=== PATIENT | male | born 1955 | race Caucasian/White ===

== ENCOUNTER → 2017-06-10 08:07 | Outpatient (CLI) | payer OTHER, SELFPAY ==
--- NOTE | 2017-06-10 08:32 | EKG12_ITS ---
Test Reason : PRE-OP Blood Pressure : / mmHG Vent. Rate : 064 BPM Atrial Rate : 064 BPM P-R Int : 128 ms QRS Dur : 100 ms QT Int : 382 ms P-R-T Axes : 066 081 062 degrees QTc Int : 394 ms Normal sinus rhythm Possible Left atrial enlargement Borderline ECG Confirmed by NAV TAFOYA, PHIL ([id number]), design editor ROSE GUERRA ([id number]) on 06/11/2017 8:59:20 AM Referred By: OUT DOCTOR Confirmed By:PHIL CHOPRA MD
[2017-06-10 10:04] LABS: Hematocrit 45.7 % (40-54); Hemoglobin 15.4 g/dl (13.0-16.5); Mean Corp Hgb Conc 33.7 g/gl (32-36); Mean Corpuscular Hgb 31.3 pg (27.0-32.0); Mean Corpuscular Volume 92.9 fL (80-94); Mean Platelet Vol. 9.4 fl (6.2-12.0); Platelet Count 248 K/mm3 (150-450); RBC Distribution Width CV 13.1 % (11.6-14.6); RBC Distribution Width SD 43.1 fl (35.1-43.9); Red Blood Count 4.92 M/mm3 (4.6-6.2); White Blood Count 7.8 K/mm3 (4.4-11.0)
[2017-06-10 10:28] LABS: Scan Indicated on CBC? Y/N NO
== END ==
PROVIDERS: Family Provider Family Medicine; PCP Family Medicine
DX: S62.626A Displaced fracture of middle phalanx of right little finger, initial encounter for closed fracture (principal); X58.XXXA Exposure to other specified factors, initial encounter
CPT/HCPCS: 36415; 85027; 93005

== ENCOUNTER → 2017-07-17 12:29 | Outpatient (CLI) | payer OTHER, SELFPAY ==
[2017-07-17 13:35] LABS: Hematocrit 42.4 % (40-54); Hemoglobin 14.4 g/dl (13.0-16.5); Mean Corpuscular Hgb 31.2 pg (27.0-32.0); Platelet Count 244 K/mm3 (150-450); RBC Distribution Width CV 12.8 % (11.6-14.6); RBC Distribution Width SD 42.4 fl (35.1-43.9); Red Blood Count 4.61 M/mm3 (4.6-6.2); White Blood Count 7.5 K/mm3 (4.4-11.0)
[2017-07-17 13:36] LABS: Scan Indicated on CBC? Y/N NO
== END ==
PROVIDERS: Family Provider Family Medicine; PCP Family Medicine
DX: S62.626A Displaced fracture of middle phalanx of right little finger, initial encounter for closed fracture (principal); X58.XXXA Exposure to other specified factors, initial encounter
CPT/HCPCS: 36415; 85027

== ENCOUNTER 2019-11-02 17:40 | Observation (INO) | payer OTHER, MEDICARE, SELFPAY ==
[2019-11-02] VITALS (8 sets, daily range): BP systolic 125–188; BP diastolic 69–112; PULSE 61–77; RESP 15–18; TEMP 36.4–37; O2SAT 5–98; BMI 22.7; BMI 23.8; BMI 23.9
--- NOTE | 2019-11-02 17:56 | EKG12_ITS ---
Test Reason : PRE OP Blood Pressure : / mmHG Vent. Rate : 058 BPM Atrial Rate : 058 BPM P-R Int : 124 ms QRS Dur : 108 ms QT Int : 414 ms P-R-T Axes : 063 081 068 degrees QTc Int : 406 ms Sinus bradycardia Otherwise normal ECG Confirmed by NAV TAFOYA, PHIL ([id number]), development editor DEVORAH TRAMMELL ([id number]) on 11/04/2019 9:44:38 AM Referred By: IVAN Confirmed By:PHIL CHOPRA MD
--- NOTE | 2019-11-02 18:00 | ED.DCSUM_ITS ---
- ER Visit Summary Date of Service: 11/02/19 Chief Complaint: [Abdominal pain] History of Present Illness: The patient is a 64 M [presents the emergency department complaint of abdominal pain that started around 11:30 AM. Patient states initially he does not notice some soreness to the suprapubic region and then noticed the mass. The mass is progressively becoming more painful. Patient's now got nausea. Denies vomiting. Denies fever. He denies any blood in stool or black tarry stool. He denies lifting anything heavy other than his granddaughter who weighs about 20 pounds. Patient has no medical history otherwise. He has had no prior surgical history.] Physical Examination: [HEENT-PERRLA, EOMI. Cranial nerves II through XII grossly intact. TMs clear. Mucous membranes moist. No adenopathy. Cardiovascular-regular rate and rhythm without murmur or ectopy Lungs-clear to auscultation, chest wall stable without crepitus or subcu emphysema Abdomen-normoactive bowel sounds, soft. Patient has tenderness palpation over the right inguinal region with a mass noted that is very tender to palpation. No significant skin changes noted. I attempted to reduce the suspected incarcerated hernia unsuccessfully. Extremities-intact ?4, normal range of motion, normal pulses, atraumatic] Test Results: [Laboratory results are pending. Patient also had a COVID 19 test ordered as I suspect that he would require surgical intervention. Patient also had an EKG ordered which is pending.] Emergency Department Course and Treatment: [After exiting the patient's room I immediately contacted general surgeon on-call Dr. Fausto Duffy who will present to the emergency department. I was asked to place patient in Trendelenburg position and apply ice to the area.] Treatment Plan: [Patient was seen by the general surgeon in the emergency department who attempted to reduce the incarcerated hernia unsuccessfully and will take patient to the operating room.] Disposition: [Admit for surgical intervention] Impression: [Incarcerated right inguinal hernia] This note was generated with [employer] dictation software. It may contain incorrect words, spelling, and punctuation that were not noted in review of the chart prior to signing ED Disposition - Plan for ED Patient: Referrals: Clifford Rodriguez MD [Primary Care Provider] -
[2019-11-02] MEDS: 0.9% Normal Saline 1,000 ML 125 ML IV (18:02)
[2019-11-02] MEDS: HYDROmorphone 1 MG/ML Syringe IV ×2 (18:03→18:36)
[2019-11-02] MEDS: Ondansetron 4 MG/2 ML Vial IV (18:03)
[2019-11-02 18:12] LABS: Absolute Neutrophil Count 8.9 X10^3/uL (2.0-7.7); Basophil# 0.09 X10^3/uL; Basophil% 0.8 % (0-1); Eosinophil# 0.15 X10^3/uL; Eosinophils% 1.4 % (0-5); Hematocrit 48.1 % (40-54); Hemoglobin 15.8 g/dL (13.0-16.5); Lymphocyte % 11.8 % (19-41); Mean Corp Hgb Conc 32.8 g/dL (32-36); Mean Corpuscular Hgb 31.5 pg (27.0-32.0); Mean Platelet Vol. 8.9 fl (6.2-12.0); Monocyte# 0.64 X10^3/uL; Monocyte% 5.8 % (0-10); NRBC Flagged by Analyzer 0 % (0-5); Neutrophil # 8.85 X10^3/uL (2.7-7.7); Neutrophil % 79.9 % (47-70); Platelet Count 264 K/mm3 (150-450); RBC Distribution Width CV 12.7 % (11.6-14.6); RBC Distribution Width SD 45.2 fl (35.1-43.9); Red Blood Count 5.01 M/mm3 (4.6-6.2); White Blood Count 11.1 K/mm3 (4.4-11.0)
--- NOTE | 2019-11-02 18:22 | NURSING ---
DR STEARNS IN ER
[2019-11-02 18:33] LABS: Anion Gap 3 (5-15); BUN 20 mg/dL (7-18); Calcium,Total 9.6 mg/dL (8.5-10.1); Chloride 109 mmol/L (98-107); Creatinine, Serum 1.11 mg/dL (0.70-1.30); EST Glomerular Filtration Rate 71 mL/min (>60); Est Glom Filt Rate - Afr Amer 86 mL/min (>60); Glucose 101 mg/dL (74-106); Potassium 4.7 mmol/L (3.5-5.1); Sodium Level 139 mmol/L (136-145)
[2019-11-02 18:53] LABS: Lactic Acid 0.8 mmol/L (0.4-1.9)
--- NOTE | 2019-11-02 19:05 | HP.PCM_ITS ---
Problem List (1) Incarcerated right inguinal hernia Status: Acute History of Present Illness Date of Admission: 11/02/19 The patient is a 64 year old M who presents with right groin pain since 1130 this morning. The patient reports that he has never experienced a hernia in this area. He started having bulging earlier today and it is increased in pain throughout the day. He is having nausea but no vomiting. He is complaining of abdominal pain as well. Past Medical History Allergies No Known Allergies Allergy (Verified 11/02/19 17:41) Home Medications: Ambulatory Orders Medication Instructions Recorded NK 11/02/19 Surgical History: no surgical history Smoking Status: Current every day smoker - *Family History Maternal History Items: No pertinent history Review of Systems Constitutional: Denies: Anorexia, Fever HEENT: Denies: Difficulty Swallowing Cardiovascular: Denies: Chest Pain Respiratory: Denies: Cough, Shortness of Breath Gastrointestinal: Reports: Abdominal Pain, Nausea, - - Right groin pain and bulging. Denies: Hematemesis, Hematochezia, Vomiting Genitourinary: Denies: Dysuria Skin: Denies: Jaundice Psychiatric: Denies: Anxiety Hematologic/ Lymphatic: Denies: Anemia VTE Information - Inpt Only VTE Present on Admission: No VTE Mechan Device Prophylaxis: SCD's Patient Problems: Active and Suspected Problems Incarcerated right inguinal hernia (Acute) - Physical Exam Vitals/I&O's: Vital Signs Temp Pulse Resp BP Pulse Ox 97.6 F L 61 18 159/69 H 95 11/02/19 18:37 11/02/19 18:37 11/02/19 18:37 11/02/19 18:37 11/02/19 18:37 Oxygen Flow Rate (L/min) 2 Oxygen Delivery Method Nasal Cannula Weight: 154 lb 1.65 oz Body Mass Index (BMI) 22.7 General: Alert, Oriented x3 Lungs: Normal air movement Cardiovascular: Regular rate, Regular Rhythm Abdomen: Soft, Non-Distended, - - Firm right groin hernia which is nonreducible Extremities: No clubbing Musculoskeletal: No Muscle Wasting Neurological: Cranial nerves II-XII grossly intact Psych/Mental Status: Normal Affect Laboratory Results 11/02/19 18:02: WBC 11.1 H, RBC 5.01, Hgb 15.8, Hct 48.1, MCV 96.0 H, MCH 31.5, MCHC 32.8, RDW Std Deviation 45.2 H, RDW Coeff of Darcy 12.7, Plt Count 264, MPV 8.9, Immature Gran % (Auto) 0.300, Neut % (Auto) 79.9 H, Lymph % (Auto) 11.8 L, [place] % (Auto) 5.8, Eos % (Auto) 1.4, Baso % (Auto) 0.8, Absolute Neuts (auto) 8.9 H, Absolute Lymphs (auto) 1.30, Nucleated RBC % 0 11/02/19 18:02: Sodium 139, Potassium 4.7, Chloride 109 H, Carbon Dioxide 27.0, Anion Gap 3 L, BUN 20 H, Creatinine 1.11, Estim Creat Clear Calc 65.60, Est GFR (MDRD) Af Amer 86, Est GFR (MDRD) Non-Af 71, BUN/Creatinine Ratio 18.0, Glucose 101, Calcium 9.6 11/02/19 18:10: Lactic Acid 0.8 11/02/19 18:30: COVID-19 (MAMADOU) Pending Current Medications Sodium Chloride () 1,000 mls @ 125 mls/hr IV .Q8H ADALGISA Last Admin: 11/02/19 18:02 Dose: 125 mls/hr Documented by: Assessment/Plan All Active Problems Incarcerated right inguinal hernia (Acute) 64-year-old male with incarcerated inguinal hernia 1. Patient has incarcerated regular hernia with possible strangulation. I was unable to reduce the hernia despite using Trendelenburg and ice packs and pain medication. The area is firm. I will take the patient to surgery this evening. I discussed surgery with the patient and his . I discussed the risks including not limited to bleeding, infection, groin pain, mesh infection, bowel resection. I discussed that I would start laparoscopically and reduce the hernia and assess the bowel. If the bowel needed resection then I would resect the small bowel and perform an inguinal hernia repair in the future. If the bowel is viable I will perform an inguinal hernia repair with mesh today. I discussed open approach and laparoscopic approach and that I would decide based on findings intraoperatively. Patient understands and is willing to proceed. Fausto Duffy MD Pager: [facility] [address] [place] [address], [address] [place] [address] Office:
[2019-11-02] MEDS: Bupivacaine Mpf 0.5% 30 ML VIAL (21:10)
--- NOTE | 2019-11-02 21:15 | PCM.OPRPT ---
Problem List (1) Incarcerated right inguinal hernia Status: Acute Report of Operation Date of Procedure: 11/02/19 Pre-Operative Diagnosis: Incarcerated right inguinal hernia Post-Operative Diagnosis: Same Surgery/Procedure Performed:: Laparoscopic right inguinal hernia repair with mesh Description of Procedure: Patient was brought to the operating room and general anesthesia was induced. The abdomen was prepped and draped in usual sterile fashion. An incision was made over the umbilicus in a curvilinear fashion and deepened to the small umbilical hernia defect. The defect was widened and the peritoneum was elevated and incised. A port was placed into the abdomen and it was insufflated to 15 mmHg. Next under direct visualization right sided and left sided abdominal 5 mm ports were placed. The patient was placed in steep Trendelenburg position. The bowel was then reduced. It appeared to be a Newsome's hernia with the antimesenteric side and the defect. It was observed for several minutes and pinked up well with peristalsis. Next the decision was taken to repair this in a laparoscopic fashion. Using electrocautery scissors the peritoneum was scored and dissection was carried inferiorly until the direct hernia defect was reduced and further posteriorly until there was a good amount of overlap and the pubic tubercle was identified. The dissection was carried laterally and the peritoneum was dissected free from the gonadal vessels. The medium 3D Bard mesh was then placed into the inguinal region and over the hernia defect. It was tacked to the pubic tubercle using pro-tack tacker. Next the mesh was arranged so that it was in good position and covered the defect well and a second pro-utilization management nurse tack was placed to oriented. Next the peritoneum was reapproximated using pro-tack tacker to avoid the epigastric vessels. There was good coverage of the mesh. The bowel was reexamined and appeared viable with good peristalsis and no further transition point. The bowel was approximately 10 cm proximal to the ileocecal valve. Next the abdomen was allowed to desufflate under observation to assure the mesh was flat and the ports were removed. The umbilical hernia defect was reapproximated using an 0 Vicryl suture in a [id number] fashion. All the incisions were anesthetized with local anesthetic and closed with interrupted 4-0 Monocryl sutures as well as Steri-Strips and bandages. The scrotum was examined at the end the case and contain both testicles. Patient was awoken and taken to PACU in stable condition and tolerated the procedure well. Grafts/Implants Used: Medium right Bard 3D mesh - Admit VTE Documentation VTE Mechan Device Prophylaxis: SCD's
[2019-11-02] MEDS: 0.9% Normal Saline 1,000 ML 60 ML IV (23:34)
[2019-11-03 00:48] VITALS: BP 137/75; PULSE 79; RESP 16; TEMP 36.9; O2SAT 96
[2019-11-03 00:53] VITALS: BMI 23.9
[2019-11-03 03:08] VITALS: BP 140/79; PULSE 62; RESP 16; TEMP 36.8; O2SAT 96
[2019-11-03 03:13] VITALS: BMI 23.9
[2019-11-03 06:16] VITALS: BP 138/84; PULSE 74; RESP 18; TEMP 36.9; O2SAT 93
[2019-11-03 06:20] VITALS: BMI 23.9
[2019-11-03 06:50] VITALS: O2SAT 93
--- NOTE | 2019-11-03 08:42 | DCINST_ITS ---
Discharge Diet: Light diet - advance as tolerated Discharge Activity: Return to Normal Activity, May Not Drive - for 2-3 days or while taking narcotic pain meds., May Shower - with the bandage in place 1-2 days after surgery. Lifting Restrictions: 20 pounds for 4 weeks. Additional Activity Instructions:: Climbing stairs is fine, walking is encouraged. Sitting in bed may be uncomfortable. Sitting up using your lateral muscles (sitting up sideways) is usually more comfortable. Do not drive, work heavy equipment of sign legal documents for 24 hours. If your hernia repair was an ingunial repair, you may have scrotal swelling, an ice pack and/or athletic support can provide more comfort. Pain medications may cause nausea, you should typically eat light foods as you take your pain medications. Pain medications may also cause constipation. If you have difficulty with this, discuss with your doctor. Call your doctor if your incision/area has: Continuous Slow Oozing, Sudden Increased Bleeding, Increased Pain/ Swelling, Increased Redness, Foul Smelling Discharge Call your doctor if you observe: Fever of 101 or Higher Suture Line Care: Avoid Pulling/Pushing, Avoid Pinching/Bending Change Dressing in (Days):: 3 - Leave steri-strips for 1 week. May protect with a guaze bandaid. Cleanse incision/area with: Keep Dressing Clean & Dry Allergies/Adverse Reactions: Allergies No Known Allergies Allergy (Verified 11/02/19 17:41) Medications to take at Discharge Acetaminophen [Tylenol Tablet] 650 mg PO Q4H PRN PRN tablet 11/03/19 Test Results: Test results from this visit will be discussed in further detail at your follow- up appointment, if applicable. Please Follow Up With: Fausto Duffy MD When: Call [phone] to schedule 2 week follow up appt
[2019-11-03 09:27] VITALS: BP 168/89; PULSE 72; RESP 18; TEMP 36.8; O2SAT 94; BMI 23.9
[2019-11-03] MEDS: Acetaminophen 325 MG Tablet 650 MG PO ×2 (09:32→13:34)
--- NOTE | 2019-11-03 09:52 | PN.SURG_ITS ---
Patient Problems: Active and Suspected Problems Incarcerated right inguinal hernia (Acute) Subjective: Patient is doing well this morning with no nausea or vomiting and minimal abdominal pain. He is tolerating clears. - Physical Exam Vitals/I&O's: Vital Signs Temp Pulse Resp BP Pulse Ox 98.3 F 72 18 168/89 H 94 11/03/19 09:27 11/03/19 09:27 11/03/19 09:27 11/03/19 09:27 11/03/19 09:27 Oxygen Flow Rate (L/min) 1 Oxygen Delivery Method Room Air Weight: 161 lb 9.581 oz Body Mass Index (BMI) 23.8 Intake and Output for Last 24 Hours 11/01/19 11/02/19 11/03/19 23:59 23:59 23:59 Intake Total 1100 / 1100 300 / 300 Output Total 400 / 400 Balance 1100 / 1100 -100 / -100 General: Alert, Oriented x3, Cooperative Lungs: Normal air movement Abdomen: Soft, Non Tender, Non-Distended Laboratory Results 11/02/19 18:02: WBC 11.1 H, RBC 5.01, Hgb 15.8, Hct 48.1, MCV 96.0 H, MCH 31.5, MCHC 32.8, RDW Std Deviation 45.2 H, RDW Coeff of Darcy 12.7, Plt Count 264, MPV 8.9, Immature Gran % (Auto) 0.300, Neut % (Auto) 79.9 H, Lymph % (Auto) 11.8 L, [place] % (Auto) 5.8, Eos % (Auto) 1.4, Baso % (Auto) 0.8, Absolute Neuts (auto) 8.9 H, Absolute Lymphs (auto) 1.30, Nucleated RBC % 0 11/02/19 18:02: Sodium 139, Potassium 4.7, Chloride 109 H, Carbon Dioxide 27.0, Anion Gap 3 L, BUN 20 H, Creatinine 1.11, Estim Creat Clear Calc 65.60, Est GFR (MDRD) Af Amer 86, Est GFR (MDRD) Non-Af 71, BUN/Creatinine Ratio 18.0, Glucose 101, Calcium 9.6 11/02/19 18:10: Lactic Acid 0.8 11/02/19 18:30: COVID-19 (MAMADOU) Negative Current Medications Acetaminophen (Tylenol) 650 mg PO Q4H PRN PRN PRN Reason: Pain (1-10) or Fever Last Admin: 11/03/19 09:32 Dose: 650 mg Documented by: Sodium Chloride () 1,000 mls @ 60 mls/hr IV .[id number] [facility] Last Admin: 11/02/19 23:34 Dose: 60 mls/hr Documented by: Ketorolac Tromethamine (Toradol (Bkc)) 15 mg IV Q8H PRN PRN PRN Reason: Pain Score 4-10/10 Stop: 11/04/19 21:14 Morphine Sulfate () 2 - 4 mg IV Q2H PRN PRN PRN Reason: Pain Score 4-10/10 Morphine Sulfate () 2 - 4 mg IV Q2H PRN PRN PRN Reason: Pain Score 4-10/10 Nutritional Formula (Lactose Free) (Ensure Enlive) 120 ml PO 4X/DAY [facility] Last Admin: 11/03/19 09:31 Dose: Not Given Documented by: Ondansetron HCl (Zofran) 4 mg IV Q6H PRN PRN PRN Reason: NAUSEA Oxycodone HCl (Oxyir) 5 - 10 mg PO Q4H PRN PRN PRN Reason: Pain Score 4-10/10 Sodium Chloride () 10 - 40 ml IV UD PRN PRN Reason: SALINE FLUSH Medical Necessity - Tobacco Use Smoking Status: Current every day smoker Tobacco Use: Cigarettes Assessment/Plan All Active Problems Incarcerated right inguinal hernia (Acute) 64-year-old male status post incarcerated right inguinal hernia repair with mesh 1. Patient is doing well this morning. I advised him that if he tolerates regular diet he may be discharged home today. I advised him to not lift over the 20 pounds for 4 weeks. Follow-up in 2 weeks. Fausto Duffy MD Pager: [facility] [address] [place] [address], [address] [place] [address] Office:
--- NOTE | 2019-11-03 11:35 | PHA.DC.MC ---
Pharmacy Service has performed discharge medication reconciliation and counseling for this patient. 1. ACETAMINOPHEN 650MG PO Q4H PRN PAIN OR FEVER The patient's discharge medication list was reviewed for discrepancies and discrepancies were resolved. Home Medications Acetaminophen [Tylenol Tablet] 650 mg PO Q4H PRN PRN tab 11/03/19 The patient was counseled on the following discharge medications and changes in medications for homegoing were reviewed. The Reason for Use, instructions for use, and potential side effects were reviewed for all new medications. The patient's questions regarding all of their medications were answered. The patient was able to verbally demonstrate an understanding of their discharge medications.
[2019-11-03 13:38] VITALS: BP 153/93; PULSE 82; RESP 18; TEMP 37.1; O2SAT 94
== END 2019-11-03 14:02 | disposition home or self-care (01) ==
LOC: ED 18:46 → MS3 19:30
PROVIDERS: Admitting Provider Surgery; Emergency Provider Emergency Medicine; PCP Family Medicine; Visit Provider Surgery
PROC: (CPT 49650; principal; 2019-11-02 19:15)
DX: K40.30 Unilateral inguinal hernia, with obstruction, without gangrene, not specified as recurrent (principal); F17.210 Nicotine dependence, cigarettes, uncomplicated
CPT/HCPCS: 00840; 49650; 80048; 83605; 85025; 87635; 93005; 96361; 96374; 96375; 96376; 99218; 99251; 99284; 99406; G2023; J7030; A4216; C1781; G0378; G0463; J2405; U0003

== ENCOUNTER 2019-11-30 07:27 | Day surgery (SDC) | payer OTHER, SELFPAY ==
[2019-11-02 22:14] VITALS: BMI 23.8
[2019-11-30] VITALS (7 sets, daily range): BP systolic 94–142; BP diastolic 71–91; PULSE 77–81; RESP 16; TEMP 36.1–36.4; O2SAT 96–98; BMI 23.8; BMI 22.4
--- NOTE | 2019-11-30 | COLBX_PTH ---
PATIENT: DANNY PEREA LOC: EN U#:[id number] AGE/SX: 64/M ROOM: RE11/30/[address]: Dr. Fausto Duffy MD : [id number] BED: DIS: 11/30/2019 SPEC #: [id number] RECD: 11/30/19 09:37 STATUS: MYRANDA REMEDIOS #: [id number] KAITLIN: 11/30/19 00:[address]: Fausto Duffy DEPT: SURGICAL PATHOLOGY RECD BY: Robby Chao ENTERED: 11/30/19 09:37 SP TYPE: COLON BX OTHR DR: Dr. Clifford Rodriguez MD Tissues: Sigmoid colon biopsy Procedures: Surgery Specimen Level IV HEADER OPERATION: Colonoscopy (MAC) PRE-OP DIAGNOSIS: Screening TISSUE SUBMITTED: Sigmoid polyp MICROSCOPIC DIAGNOSIS Sigmoid colon polyp, biopsy: Hyperplastic polyp. AM:cat 12/01/19 MICROSCOPIC DESCRIPTION Slides are reviewed. GROSS DESCRIPTION Received in fixative is one container labeled with the patient's name and designated sigmoid polyp. The specimen consists of a forbes-pink polyp measuring 0.7 x 0.5 x 0.3 cm. The specimen is totally submitted in one cassette. / SJ:cat 11/30/19 TC:5 CPT: 32505
[2019-11-30] MEDS: Lactated Ringers 1,000 ML 100 ML IV (08:02)
--- NOTE | 2019-11-30 08:57 | HP.PCM_ITS ---
History of Present Illness Date of Admission: 11/30/19 The patient is a 64 year old M here for screening colonoscopy. The patient has never had a screening colonoscopy in the past. He is having no abdominal pain or blood in his stool. He has no family history of colon cancer. Past Medical/Surgical History - Planned Operation Planned Operative Procedure/s: COLONOSCOPY Date of Operative Procedure: 11/30/19 Permit Signed: Yes S.O.S: No Is This Patient Having a Total Joint: No - Previous Hospitalizations/Surgeries HX Hospitalizations: No HX of Surgeries: LAP INCARCERATED HERNIA REPAIR W/ MESH 11/02/19 Any Problems With Anesthesia: No You/Your Family Experience Fever (Hyperthermia) With Anes: No Cholinesterase deficiency: No - Cardiovascular Hx Chest Pain within Last 2 months: No Hx of Irregular Heartbeat and/or Afib: No Hx Heart Attack: No Hx Congestive Heart Failure: No Hx Rheumatic Fever: No Hx Hypertension: No Hx Internal Defibrillator: No Hx Pacemaker: No Hx Cardiac Catheterization: No Hx Cardiac Surgery/Stents/Etc.: No Hx Stress Test: No HX Edema: No Hx Pain in Legs when Walking/Leg Cramps: No - Respiratory Chronic Cough: No HX of Shortness of Breath: No Hoarseness: No Hx Chronic Obstructive Pulmonary Disease (COPD): No Hx Asthma: No Hx Emphysema: No Hx Sleep Apnea: No Hx Oxygen Use at Home: No Hx Respiratory Tract Infection/Cold (presently): No Do You Snore Loudly (louder than talking or can be heard): No Do You Often Feel Tired/ Fatigued/ Sleepy Dring Daytime?: No Has Anyone Observed You Stop Breathing During Sleep?: No Result (for STOP score): Negative Hx Smoking: Yes Smoking Status: Current every day smoker - Gastrointestinal Hx Gastroesophageal Reflux: No Hx Gastrointestinal Disorders: No Hx Gastrointestinal Bleed: No Hx Ulcer: No Hx Hiatal Hernia: No Difficulty Chewing/Swallowing: No Recent Onset of Swallowing Problems: No Special diet followed at home: No Hx Unplanned Weight Loss of 20#: No HX Unplanned Weight Gain of 20#: No - Neurological Hx Seizures: No HX Syncope/Blackout Spells/Unconsciousness: No Hx CVA/Stroke: No Hx Transient Ischemic Attacks (TIA): No Hx Multiple Sclerosis: No Hx Parkinson's Disease: No Hx Head/Neck Injury: No Hx Headaches: No Hx Back Injury/Pain: Yes - BACK INJURY AT WORK-[employer] FX 3 PLACES, VERTEBRA FX 20+ YRS AGO Restless Legs: No Does patient have nerve stimulator: No - Blood Disorder Hx Leukemia: No Bleeding Tendencies: No Hx Deep Vein Thrombosis: No Hx High Cholesterol: No Blood Transmitted Disease: No Hx Hepatitis: No Hx Cirrhosis: No Hx Anemia: No Hx Blood Disorders: No - Genitourinary Hx Renal Disease: No Hx Dialysis: No - Musculoskeletal Hx Arthritis: No Hx Rheumatoid Arthritis: No Hx Gout: No Recent Onset of an Orthopedic Problem: No - Endocrine Hx Diabetes: No Thyroid Disease: No Hx Steroid Therapy: No - Psycho/Social Hx Substance Use: No Hx Alcohol Use: Yes - occasional beer Hx Anxiety: No Hx Depression: No Mental Illness: No Hx Dementia: No - Miscellaneous Hx Cancer: No Recent Exposure to Contagious Disease: No Active MRSA: No Hx of C-Diff: No Any Loose Teeth: Yes - UPPER PLATE Additional information pertinent to anesthesia:: SMOKES 1PPD FOR 30+ YRS Allergies No Known Allergies Allergy (Verified 11/18/19 14:14) Maternal No pertinent history - Discharge Is Pt Admitted From a Senior Living, or a Fpc: No Who Could Help: After D/C, Where Do you Plan to Go: Return Home - From the PAT History Number of Risk Factors: 1 - Physical Exam Vitals/I&O's: Vital Signs Temp Pulse Resp BP Pulse Ox 97.2 F L 81 16 94/74 98 11/30/19 08:45 11/30/19 08:50 11/30/19 08:50 11/30/19 08:50 11/30/19 08:50 Oxygen Delivery Method Room Air Weight: 152 lb 5.431 oz Body Mass Index (BMI) 22.4 General: Alert, Oriented x3 Neck: No JVD Lungs: Normal air movement Cardiovascular: Regular rate, Regular Rhythm Abdomen: Soft, Non Tender, Non-Distended Current Medications Lactated Ringer's () 1,000 mls @ 100 mls/hr IV .Q10H ADALGISA Last Admin: 11/30/19 08:02 Dose: 100 mls/hr Documented by: Assessment/Plan All Active Problems (Last Updated 11/16/19 @ 13:11 by Lana Pierce) Incarcerated right inguinal hernia (Acute) 64-year-old male for screening colonoscopy I explained endoscopy in detail to the patient. I explained the risks including but not limited to stroke or heart attack with anesthesia, perforation of the GI tract, bleeding, infection. I explained that any of these could necessitate further emergency surgery. The patient understands and all questions were answered sufficiently. The patient wishes to proceed with procedure. We discussed the current risks associated with COVID-19. While it is understood that there is a community spread of COVID-19, the risk of ottoniel COVID-19 while at [facility] ([facility]) is very low; however, the risk cannot be completely mitigated because of the community spread of the disease. We discussed in detail the risk of exposure to and/or potential harm posed by the COVID-19 virus with having a surgery/procedure at this time versus the risk of delaying the surgery/procedure. It is not possible to know either the risk of delaying the surgery or procedure or chance of getting an infection with perfect accuracy, but a joint decision was made to proceed at this time with the scheduled surgery/procedure as indicated on the consent form. Patient was notified that we will need to comply with any screening or testing [facility] wishes to perform or that surgery may be delayed for any positive results. Fausto Duffy MD Pager: [facility] [address] [place] [address] [address] [place] [address] Office: Surgery Risks - Colonoscopy Risks Include but are not Limited To: Risks include but are not limited to: Bleeding, perforation requiring further surgery, inability to complete colonoscopy requiring barium enema.
--- NOTE | 2019-11-30 09:04 | OP.COLON_ITS ---
Patient Name: Jann Dupree Procedure Date: 11/30/2019 8:20 AM Date of : 1955 Age: 64 Procedure: Colonoscopy Indications: Screening for colorectal malignant neoplasm Providers: Fausto Duffy MD Referring MD: Clifford Rodriguez Medicines: Monitored Anesthesia Care Patient Profile: This is a 64 year old male. Refer to note in patient chart for documentation of history and physical. Last Colonoscopy: none. The patient's first colonoscopy is today. Complications: No immediate complications. Estimated blood loss: Minimal. Procedure: Pre-Anesthesia Assessment: - Prior to the procedure, a History and Physical was performed, and patient medications and allergies were reviewed. The patient's tolerance of previous anesthesia was also reviewed. The risks and benefits of the procedure and the sedation options and risks were discussed with the patient. All questions were answered, and informed consent was obtained. Prior Anticoagulants: The patient has taken no previous anticoagulant or antiplatelet agents. After reviewing the risks and benefits, the patient was deemed in satisfactory condition to undergo the procedure. After I obtained informed consent, the scope was passed under direct vision. Throughout the procedure, the patient's blood pressure, pulse, and oxygen saturations were monitored continuously. The pediatric colonoscope was introduced through the anus and advanced to the cecum, identified by appendiceal orifice and ileocecal valve. The colonoscopy was performed without difficulty. The patient tolerated the procedure well. The quality of the bowel preparation was good. Scope In: 8:27:34 AM Scope Withdrawal Time 0 hours 6 minutes 11 seconds Scope Out: 8:39:49 AM Total Procedure Duration Time 0 hours 12 minutes 15 seconds Findings: A polyp was found in the sigmoid colon. The polyp was semi-pedunculated. The polyp was removed with a hot snare. Resection and retrieval were complete. The exam was otherwise without abnormality on direct and retroflexion views. Impression: - One polyp in the sigmoid colon, removed with a hot snare. Resected and retrieved. - The examination was otherwise normal on direct and retroflexion views. Recommendation: - Discharge patient to home. - Resume previous diet. - Continue present medications. - Await pathology results. - Repeat colonoscopy for surveillance based on pathology results. Procedure Code(s): --- Professional --- 03072, Colonoscopy, flexible; with removal of tumor(s), polyp(s), or other lesion(s) by snare technique Diagnosis Code(s): --- Professional --- Z12.11, Encounter for screening for malignant neoplasm of colon D12.5, Benign neoplasm of sigmoid colon CPT copyright 2017 [employer]. All rights reserved. The codes documented in this report are preliminary and upon speech language pathology assistant review may be revised to meet current compliance requirements. Fausto Duffy MD 11/30/2019 9:04:02 AM This report has been signed electronically. Number of Addenda: 0 Note Initiated On: 11/30/2019 8:20 AM
--- NOTE | 2019-11-30 09:04 | OP.CCLET_ITS ---
11/30/2019 Clifford Rodriguez Re : Colonoscopy procedure for Jann Dupree Dear Jennifer This procedure was performed on Saturday, November 30, 2019. My impressions and recommendations are as follows: Impressions : - One polyp in the sigmoid colon, removed with a hot snare. Resected and retrieved. - The examination was otherwise normal on direct and retroflexion views. Recommendations : - Discharge patient to home. - Resume previous diet. - Continue present medications. - Await pathology results. - Repeat colonoscopy for surveillance based on pathology results. My findings are described in the full procedure note, which is enclosed. If I can be of further assistance, please feel free to contact me at Doctor phone number(s): , Work: . Sincerely, Fausto Duffy MD 11/30/2019 9:04:02 AM This report has been signed electronically.
== END 2019-11-30 09:30 | disposition home or self-care (01) ==
LOC: EN 07:28 → AC 07:28
PROVIDERS: Anesthesiology; PCP Family Medicine; Referring Provider Family Medicine; Visit Provider Surgery
PROC: 0DJD8ZZ Inspection of Lower Intestinal Tract, Via Natural or Artificial Opening Endoscopic (ICD-10-PCS; CPT 45378; principal; 2019-11-30 08:25)
DX: Z12.11 Encounter for screening for malignant neoplasm of colon (principal); K63.5 Polyp of colon; Z11.59 Encounter for screening for other viral diseases; F17.210 Nicotine dependence, cigarettes, uncomplicated
CPT/HCPCS: 45385; 87635; 88305; 94799; J7120; U0003

== ENCOUNTER 2020-06-27 11:44 | Outpatient (RCR) | payer OTHER, SELFPAY ==
[2019-11-30 08:03] VITALS: BMI 22.4
[2020-06-27] MEDS: COVID-19 VACC, MRNA(PFIZER)/PF 30 MCG/0.3 ML SYRINGE IM (08:59)
[2020-07-18] MEDS: COVID-19 VACC, MRNA(PFIZER)/PF 30 MCG/0.3 ML SYRINGE IM (09:07)
== END 2020-09-26 23:59 ==
LOC: IMMUN 11:44
PROVIDERS: PCP Family Medicine; Referring Provider Family Medicine; Visit Provider Family Medicine
DX: Z23 Encounter for immunization (principal)
CPT/HCPCS: 0001A; 0002A; 91300

== ENCOUNTER → 2022-08-05 | Outpatient (CLI) | payer MEDICARE, OTHER, SELFPAY ==
[2022-08-05 16:48] LABS: ALB/GLOB Ratio 1.1 RATIO (0.9-2.4); AST(SGOT) 19 U/L (15-37); Alanine Aminotransfer ALT/SGPT 24 U/L (16-61); Albumin, Serum 3.8 g/dL (3.2-5.0); Alkaline Phosphatase 75 U/L (45-117); Anion Gap 3 (5-15); BUN 23 mg/dL (7-18); BUN/Creat Ratio 21.1 RATIO (10-20); Calcium,Total 9.4 mg/dL (8.5-10.1); Chloride 109 mmol/L (98-107); Cholesterol 250 mg/dL (200); Creatinine, Serum 1.09 mg/dL (0.70-1.30); EST Glomerular Filtration Rate 72 mL/min (>60); Est Glom Filt Rate - Afr Amer 87 mL/min (>60); Globulin 3.5 g/dL (2.2-4.2); Glucose 83 mg/dL (74-106); High Density Lipoprotein 47 mg/dL; PSA,Total - Annual Screen 5.13 ng/mL (0.00-4.00); Potassium 4.6 mmol/L (3.5-5.1); Protein, Total 7.3 g/dL (6.4-8.2); Sodium Level 138 mmol/L (136-145); Triglycerides 103 mg/dL; Very Low Density Lipoprotein 21 mg/dL (5-40)
[2022-08-05 17:15] LABS: Absolute Lymphocyte Count 1.45 X10^3/uL (0.83-4.51); Absolute Neutrophil Count 4.8 X10^3/uL (2.0-7.7); Basophil# 0.09 X10^3/uL; Basophil% 1.2 % (0-1); Eosinophil# 0.27 X10^3/uL; Eosinophils% 3.7 % (0-5); Hematocrit 47.6 % (40-54); Hemoglobin 15.7 g/dL (13.0-16.5); Lymphocyte # 1.45 X10^3/ul (0.83-4.51); Lymphocyte % 19.9 % (19-41); Mean Corpuscular Hgb 30.9 pg (27.0-32.0); Mean Corpuscular Volume 93.7 fL (80-94); Mean Platelet Vol. 9.5 fl (6.2-12.0); Monocyte# 0.71 X10^3/uL; Monocyte% 9.8 % (0-10); NRBC Flagged by Analyzer 0 % (0-5); Neutrophil # 4.75 X10^3/uL (2.7-7.7); Neutrophil % 65.3 % (47-70); Platelet Count 265 K/mm3 (150-450); RBC Distribution Width CV 13.3 % (11.6-14.6); RBC Distribution Width SD 46.1 fl (35.1-43.9); Red Blood Count 5.08 M/mm3 (4.6-6.2); White Blood Count 7.3 K/mm3 (4.4-11.0)
== END | disposition home or self-care (01) ==
PROVIDERS: PCP Family Medicine; Visit Provider Internal Medicine
DX: I10 Essential (primary) hypertension (principal); N40.0 Benign prostatic hyperplasia without lower urinary tract symptoms
CPT/HCPCS: 36415; 80053; 80061; 84153; 85025; G0103

== ENCOUNTER → 2022-12-10 | Outpatient (CLI) | payer MEDICARE, OTHER, SELFPAY ==
[2022-12-10 13:00] LABS: Cholesterol 245 mg/dL (200); High Density Lipoprotein 55 mg/dL; PSA,Total- Diagnostic 5.45 ng/mL (0.0-4.0); Triglycerides 78 mg/dL; Very Low Density Lipoprotein 16 mg/dL (5-40)
== END | disposition home or self-care (01) ==
LOC: BIMLAB 10:29
PROVIDERS: PCP Internal Medicine; Referring Provider Internal Medicine; Visit Provider Internal Medicine
DX: E78.5 Hyperlipidemia, unspecified (principal); N40.0 Benign prostatic hyperplasia without lower urinary tract symptoms
CPT/HCPCS: 36415; 80061; 84153

== ENCOUNTER → 2023-08-08 | Outpatient (CLI) | payer MEDICARE, OTHER, SELFPAY ==
[2023-08-08 12:16] LABS: Absolute Lymphocyte Count 1.41 X10^3/uL (0.83-4.51); Absolute Neutrophil Count 4.1 X10^3/uL (2.0-7.7); Basophil# 0.11 X10^3/uL; Basophil% 1.7 % (0-1); Eosinophils% 4.6 % (0-5); Hematocrit 47.1 % (40-54); Hemoglobin 15.1 g/dL (13.0-16.5); Lymphocyte # 1.41 X10^3/ul (0.83-4.51); Lymphocyte % 21.5 % (19-41); Mean Corp Hgb Conc 32.1 g/dL (32-36); Mean Corpuscular Hgb 30.4 pg (27.0-32.0); Mean Platelet Vol. 9.4 fl (6.2-12.0); Monocyte# 0.62 X10^3/uL; Monocyte% 9.5 % (0-10); NRBC Flagged by Analyzer 0 % (0-5); Neutrophil % 62.5 % (47-70); Platelet Count 258 K/mm3 (150-450); RBC Distribution Width CV 13.4 % (11.6-14.6); Red Blood Count 4.96 M/mm3 (4.6-6.2); White Blood Count 6.6 K/mm3 (4.4-11.0)
[2023-08-08 12:38] LABS: ALB/GLOB Ratio 0.9 RATIO (0.9-2.4); AST(SGOT) 24 U/L (15-37); Alanine Aminotransfer ALT/SGPT 21 U/L (16-61); Albumin, Serum 3.5 g/dL (3.2-5.0); Alkaline Phosphatase 68 U/L (45-117); Anion Gap 2 (5-15); BUN 20 mg/dL (7-18); BUN/Creat Ratio 20.2 RATIO (10-20); Calcium,Total 9.4 mg/dL (8.5-10.1); Chloride 109 mmol/L (98-107); Cholesterol 245 mg/dL (200); Creatinine, Serum 0.99 mg/dL (0.70-1.30); EST Glomerular Filtration Rate 80 mL/min (>60); Est Glom Filt Rate - Afr Amer 97 mL/min (>60); Glucose 98 mg/dL (74-106); High Density Lipoprotein 49 mg/dL; PSA,Total - Annual Screen 4.53 ng/mL (0.00-4.00); Potassium 4.6 mmol/L (3.5-5.1); Protein, Total 7.5 g/dL (6.4-8.2); Sodium Level 137 mmol/L (136-145); Triglycerides 93 mg/dL; Very Low Density Lipoprotein 19 mg/dL (5-40)
== END | disposition home or self-care (01) ==
LOC: BIMLAB 09:44
PROVIDERS: PCP Internal Medicine; Referring Provider Internal Medicine; Visit Provider Internal Medicine
DX: N40.0 Benign prostatic hyperplasia without lower urinary tract symptoms (principal); I10 Essential (primary) hypertension; E78.5 Hyperlipidemia, unspecified; Z12.5 Encounter for screening for malignant neoplasm of prostate
CPT/HCPCS: 36415; 80053; 80061; 84153; 85025; G0103

== ENCOUNTER → 2023-11-17 | Outpatient (CLI) | payer MEDICARE, OTHER, SELFPAY ==
[2023-11-17 12:31] LABS: ALB/GLOB Ratio 0.9 RATIO (0.9-2.4); AST(SGOT) 21 U/L (15-37); Alanine Aminotransfer ALT/SGPT 18 U/L (16-61); Albumin, Serum 3.8 g/dL (3.2-5.0); Alkaline Phosphatase 76 U/L (45-117); Anion Gap 3 (5-15); BUN 20 mg/dL (7-18); BUN/Creat Ratio 18.5 RATIO (10-20); Calcium,Total 9.9 mg/dL (8.5-10.1); Chloride 106 mmol/L (98-107); Cholesterol 181 mg/dL (200); Creatinine, Serum 1.08 mg/dL (0.70-1.30); EST Glomerular Filtration Rate 72 mL/min (>60); Est Glom Filt Rate - Afr Amer 87 mL/min (>60); Globulin 4.2 g/dL (2.2-4.2); Glucose 97 mg/dL (74-106); High Density Lipoprotein 62 mg/dL; PSA,Total- Diagnostic 5.57 ng/mL (0.0-4.0); Potassium 5.3 mmol/L (3.5-5.1); Sodium Level 137 mmol/L (136-145); Triglycerides 54 mg/dL; Very Low Density Lipoprotein 11 mg/dL (5-40)
== END | disposition home or self-care (01) ==
PROVIDERS: PCP Internal Medicine; Referring Provider Internal Medicine; Visit Provider Internal Medicine
DX: I10 Essential (primary) hypertension (principal); N40.0 Benign prostatic hyperplasia without lower urinary tract symptoms; E78.5 Hyperlipidemia, unspecified
CPT/HCPCS: 36415; 80053; 80061; 84153

== ENCOUNTER → 2023-11-24 | Outpatient (CLI) | payer MEDICARE, OTHER, SELFPAY ==
[2023-11-24 12:15] LABS: Anion Gap 3 (5-15); BUN 18 mg/dL (7-18); BUN/Creat Ratio 15.8 RATIO (10-20); Calcium,Total 9.8 mg/dL (8.5-10.1); Chloride 104 mmol/L (98-107); Creatinine, Serum 1.14 mg/dL (0.70-1.30); EST Glomerular Filtration Rate 68 mL/min (>60); Est Glom Filt Rate - Afr Amer 82 mL/min (>60); Glucose 96 mg/dL (74-106); Potassium 4.6 mmol/L (3.5-5.1); Sodium Level 136 mmol/L (136-145)
== END | disposition home or self-care (01) ==
LOC: BIMLAB 10:54
PROVIDERS: PCP Internal Medicine; Referring Provider Internal Medicine; Visit Provider Internal Medicine
DX: I10 Essential (primary) hypertension (principal)
CPT/HCPCS: 36415; 80048

== ENCOUNTER → 2023-12-16 | Outpatient (CLI) | payer MEDICARE, OTHER, SELFPAY ==
[2023-12-18 13:08] LABS: PSA, Free 0.65 ng/mL; PSA, Free % 16.2 % (.)
== END | disposition home or self-care (01) ==
LOC: LAB 15:00
PROVIDERS: PCP Internal Medicine; Referring Provider Urology; Visit Provider Urology
DX: R97.20 Elevated prostate specific antigen [PSA] (principal)
CPT/HCPCS: 36415; 84153; 84154

== ENCOUNTER → 2024-01-07 | Outpatient (CLI) | payer MEDICARE, OTHER, SELFPAY ==
--- NOTE | 2024-01-07 08:07 | MRI_ITS ---
EXAMINATION: MR Pelvis WO/W Contrast COMPARISON: None CLINICAL HISTORY: 68 yo M w/ elevated PSA Most recent PSA = 5.6 ng/ml TECHNIQUE: Standard prostate MR protocol was used before and after administration of 15 cc of IV Clariscan. FINDINGS: Prostate volume: 30 cc PSA density: 0.19 ng/ml2 Length of membranous urethra: 8 mm Post-biopsy hemorrhage: None Multiparametric MR evaluation: Heterogeneous appearance of the central gland is consistent with benign prostatic hyperplasia. Lesion 1: LOCATION - there is a 0.9 x 0.7 x 1.3 cm moderately T2 hypointense round lesion in the left lateral peripheral zone near base. It is moderately bright on DWI and moderately dark on ADC map. T2 - 4 DWI - 4 DCE - positive Overall PI-RADS v2 score = 4 Capsular margin and neurovascular bundle: There is macrocapsular extension laterally to the left by 2 mm. Seminal vesicles: Not involved. Lymph nodes: No lymphadenopathy in the field of view. Bones: No suspicious lesions in the field of view. MRI/Pelvis W/WO Contrast IMPRESSION: 1.3 cm PI-RADS 4 lesion in the left lateral PZ near base. - Macrocapsular extension laterally to the left by 2 mm. - No evidence of seminal vesicle invasion. - No lymphadenopathy. - No suspicious bone lesions. Electronically Signed: Severo Oliva MD at 18:40 EDT ,
== END | disposition home or self-care (01) ==
LOC: MRI 07:53
PROVIDERS: PCP Internal Medicine; Visit Provider Urology
DX: R97.20 Elevated prostate specific antigen [PSA] (principal)
CPT/HCPCS: 72197; A9575

== ENCOUNTER → 2024-02-10 | Outpatient (CLI) | payer MEDICARE, OTHER, SELFPAY ==
--- NOTE | 2024-02-10 | IMM_PTH ---
PATHOLOGY RESULTS PATIENT: DANNY PEREA LOC: [facility] U#:[id number] AGE/SX: 68/M ROOM: RE02/10/[address]: Dr. Shashank Chen MD : 1955 BED: DIS: 02/10/2024 SPEC #: [id number] RECD: 02/12/24 11:34 STATUS: MYRANDA REQ #: [id number] KAITLIN: 02/10/24 00:[address]: Shashank Chen DEPT: IMMUNOHISTOCHEMISTRY RECD BY: Rich Rogel ENTERED: 02/12/24 11:36 SP TYPE: IMMUNO OTHR DR: Dr. Ricci Kapadia MD Tissues: PROSTATE RIGHT PROSTATE RIGHT PROSTATE LEFT PROSTATE LEFT Procedures: 34BE12 (add) P40 (add) 34BE12 (initial) PHYSICIAN & INSTITUTION [place] [address] SPECIMEN INFORMATION: Tissue Source: A- Right apex, C- Right base, D- Left apex, F- Left base Clinical Info: Elevated PSA Specimen Number: [id number] A, C, D, F CPT code: 55654,37292o METHODOLOGY: Deparaffinized sections of prefer/formalin-fixed tissue or PAP/DQ stained slides are incubated with monoclonal/polyclonal antibodies/oligonucleotide probes. Localization is made via biotin free immunoperoxidase method. Appropriate controls are performed and reacted as expected. Results on target cell population are indicated in the following table: RESULTS: ANTIBODY / CLONE RESULT Block A 34BE12 (34BE12) positive P40 (BC28) positive Block C 34BE12 (34BE12) negative P40 (BC28) negative Block D 34BE12 (34BE12) positive P40 (BC28) positive Block F 34BE12 (34BE12) negative P40 (BC28) negative These tests were developed and their performance characteristics determined by [facility]. They may not have been cleared or approved by the U.S. Food and Drug Administration. The FDA has determined that such clearance or approval is not necessary. The above immunohistochemical/dualISH markers are ordered and reviewed by the Pathologist. INTERPRETATION: A. Prostate, right apex, core biopsy: Benign prostatic tissue. C. Prostate, right base, core biopsy: Adenocarcinoma. D. Prostate, left apex, core biopsy: Benign prostatic tissue. F. Prostate, left base, core biopsy: Adenocarcinoma. AM. 02/13/2024
--- NOTE | 2024-02-10 08:00 | PROSBIL_PTH ---
PATHOLOGY RESULTS PATIENT: DANNY PEREA LOC: [facility] U#:[id number] AGE/SX: 68/M ROOM: RE02/10/[address]: Dr. Shashank Chen MD : 1955 BED: DIS: 02/10/2024 SPEC #: [id number] RECD: 02/11/24 10:25 STATUS: MYRANDA GALANRoger #: [id number] KAITLIN: 02/10/24 08:[address]: Shashank Chen DEPT: SURGICAL PATHOLOGY RECD BY: Geraldo Singletary ENTERED: 02/11/24 10:27 SP TYPE: PROST BX STEPHAN DR: Dr. Ricci Kapadia MD Tissues: PROSTATE RIGHT PROSTATE RIGHT PROSTATE RIGHT PROSTATE LEFT PROSTATE LEFT PROSTATE LEFT Procedures: PROSTATE BX HEADER OPERATION: Prostate biopsy PRE-OP DIAGNOSIS: Elevated PSA TISSUE SUBMITTED: A - Right apex, B - Right mid, C - Right base, D - Left apex, E - Left mid, F - Left base MICROSCOPIC DIAGNOSIS A. Right prostate, apex, core biopsy: Glandular atrophy. See comment. B. Right prostate, mid, core biopsy: No pathologic change. C. Right prostate, base, core biopsy: Adenocarcinoma. Spring grade: 3+3 (6) Cores involved: 1/1 Tissue involved: 2% Greatest tumor length: 0.5 millimeters D. Left prostate, apex, core biopsy: Benign prostatic tissue. See comment. E. Left prostate, mid, core biopsy: Benign prostatic tissue. F. Left prostate, base, core biopsy: Adenocarcinoma. Spring grade: 3+3 (6) Cores involved: 2/2 Tissue involved: 10% Greatest tumor length: 1.5 millimeters See comment. AM 02/12/2024 COMMENT A , C, D, F. Immunohistochemistry ([id number]) supports the above diagnosis. Case has been reviewed in consultation with Dr. Cantrell who concurs with the above diagnosis. IDC:[email or web address] MICROSCOPIC DESCRIPTION Slides are reviewed. GROSS DESCRIPTION A - Received is one container designated prostate, right apex. The specimen consists of one elongated fragments of light forbes-white soft tissue measuring 1.3 cm in length and 0.1 cm in diameter. The specimen is totally submitted in one cassette. B - Received is one container designated prostate, right mid. The specimen consists of one elongated fragments of light forbes-white soft tissue measuring 1.0 cm in length and 0.1 cm in diameter. The specimen is totally submitted in one cassette. C - Received is one container designated prostate, right base. The specimen consists of one elongated fragments of light forbes-white soft tissue measuring 1.0 cm in length and 0.1 cm in diameter. The specimen is totally submitted in one cassette. D - Received is one container designated prostate, left apex. The specimen consists of one elongated fragments of light forbes-white soft tissue measuring 1.1 cm in length and 0.1 cm in diameter. The specimen is totally submitted in one cassette. E - Received is one container designated prostate, left mid. The specimen consists of two elongated fragments of light forbes-white soft tissue each measuring 1.1 cm in length and 0.1 cm in diameter. The specimen is totally submitted in one cassette. F - Received is one container designated prostate, left base. The specimen consists of two elongated fragments of light forbes-white soft tissue each measuring 1.2 cm in length and 0.1 cm in diameter. The specimen is totally submitted in one cassette. / 02/11/2024 TC: CPT: G0146
--- OUTSIDE RECORDS SUMMARY | 2024-02-10 17:07 | XMS RPT_ITS | CCD ---
Author Organization [facility] Care Team Providers Care Collector Name Role Phone No, Physician Unavailable Unavailable David Gilmore Unavailable Unavailable David Gilmore Unavailable Unavailable NO, PHYSICIAN Unavailable Unavailable BRANTINGMATT LATASHA Unavailable Unavailabl e BRANTINGHAM, LATASHA Unavailable Unavailabl e BRANTINGHAM, LATASHA Unavailable Unavailabl e NO, PHYSICIAN Unavailable Unavailable BRANTINGHAM, LATASHA Unavailable Unavailabl e BRANTINGHAM, LTAASHA Unavailable Unavailabl e NO, PHYSICIAN Unavailable Unavailable No, Physician Primary Care Provider Unavailabl e Medications Current Medications Medication Drug Class(es) Dates Sig (Normalized) Sig (Original) aspirin 81 mg delayed release oral tablet (5 sources) Nonsteroidal Anti-inflammatory Drug take 1 tablet by mouth once daily aspirin 81 MG EC tablet Take 81 mg by mouth daily. 0 Active diclofenac sodium 75 mg delayed release oral tablet (5 sources) Nonsteroidal Anti-inflammatory Drug Start: 06-05-2017 take 1 tablet by mouth twice daily as needed for pain diclofenac sodium (VOLTAREN) 75 MG EC tablet Indications: Closed displaced fracture of phalanx of right little finger, unspecified phalanx, initial encounter , Injury of right upper extremity, initial encounter Take 1 (one) tablet (75 mg total) by mouth 2 (two) times a day as needed for pain. 30 tablet 0 06/05/2017 Active mupirocin 0.02 mg/mg topical ointment (4 sources) RNA Synthetase Inhibitor Antibacterial Start: 06-05-2017 End: 06-15-2017 mupirocin (BACTROBAN) 2 % ointment Indications: Multiple abrasions Apply topically 3 (three) times a day for 10 days. 22 g 0 06/05/2017 06/15/2017 Active Completed/Discontinued Medications Medication Drug Class(es) Dates Sig (Normalized) Sig (Original) 0.5 ml bordetella pertussis filamentous hemagglutinin vaccine, inactivated 0.01 mg/ml / bordetella pertussis fimbriae 2/3 vaccine, inactivated 0.01 mg/ml / bordetella pertussis pertactin vaccine, inactivated 0.006 mg/ml / bordetella pertussis toxoid vaccine, inactivated 0.005 mg/ml / diphtheria toxoid vaccine, inactivated 4 unt/ml / tetanus toxoid vaccine, inactivated 10 unt/ml injection (2 sources) Inactivated Corynebacterium Diphtheriae Vaccine, Inactivated Clostridium Tetani Vaccine Start: 06-05-2017 End: 06-05-2017 diptheria, tetanus toxoid, acellular pertusssis (ADACEL) injection 0.5 mL Start: 06-05-2017 End: 06-05-2017 take 0.5 mL by intramuscular injection once diptheria, tetanus toxoid, acellular pertusssis (ADACEL) injection 0.5 mL 0.5 mL, Intramuscular, Once, [facility] 06/05/17 at 1715, For 1 dose, Tip cap contains LATEX. Use caution when handling if you have a latex allergy. Okay to administer to patient with latex allergy Given 06/05/2017 16:39 EST 0.5 mL Left Deltoid Problems Active Problems Problem Classification Problem Date Documented Da te Episodic/Chronic Unclassified (2 sources) Unspecified multiple injuries, initial encounter; Translations: [Unspecified multiple injuries, initial encounter] Onset: 06-05-2017 Past or Other Problems Problem Classification Problem Date Documented Da te Episodic/Chronic Administrative/social admission (2 sources) Encounter for examination and observation for other specified reasons; Translations: [Encounter for examination and observation for other specified reasons] Onset: 06-05-2017 Episodic Fracture of upper limb (2 sources) Fracture of unspecified phalanx of right little finger, initial encounter for closed fracture; Translations: [Fracture of unspecified phalanx of right little finger, initial encounter for closed fracture] Onset: 06-05-2017 Episodic Other injuries and conditions due to external causes (4 sources) Unspecified injury of right shoulder and upper arm, initial encounter; Translations: [Unspecified injury of right wrist, hand and finger(s), initial encounter] Onset: 06-05-2017 Episodic Results Test Name Value Interpretation Reference Range Facility HAND, MINIMUM 3 VIEWSon 05-22 HAND, MINIMUM 3 VIEWS Final ReportAccession No: [id number] Performed: Jun 06 2017 2:37PMExamination: RIGHT HAND, MINIMUM 3 VIEWSEXAMINATION: 3 views of the right hand.CLINICAL INFORMATION: Injury to right fifth finger.COMPARISON: 06/05/2017.FINDINGS: There is a comminuted fracture involving the middle phalanx ofthesmall finger, extending to the articular surface. Mild displacement ispresentat the ventral base. No additional fracture or dislocation is identified.Milddegene rative changes are present at the wrist. Soft tissues swelling ispresentat the small finger.IMPRESSION:Com minuted, intra-articular fracture involving the middle phalanx of thesmallfinger. There is mild ventral displacement of the main proximal fragment.Interpreting Physician: AMBER SMITH M.D.Trans: dcarr : cc: Normal [facility] XR FOREARM RIGHT 2 VIEWSon 0 06-05-2017 XR FOREARM RIGHT 2 VIEWS EXAMINATION:XR HAND RIGHT 3+ VIEWS (STANDARD); XR FOREARM RIGHT 2 VIEWS 06/05/2017HISTORY:ORD ERING SYSTEM PROVIDED HISTORY: r/o fx, pain in 5th digit, TECHNOLOGIST PROVIDED HISTORY: Reason for exam: rt lower arm abrasions and pain post smash injury today at workInjury/TraumaCanc er History: unkSurgery, RadiationHistory: unkEncounter Type: InitialMechanism of injury: pain injuryORDERING SYSTEM PROVIDED DIAGNOSIS CODES:S69.91XA Injury of right hand, initial encounterCOMPARISON:N one.FINDINGS:Right hand, 3 views: Frontal, oblique and lateral views demonstrate an acute comminuted mildly displaced overlapping intraarticular fracture centered at the volar lip of the 5th middle phalanx. Mild associated soft tissue swelling noted. Multifocal osteoarthritic changes with mild joint space narrowing, periarticular sclerosis and osteophytosis involving distal radiocarpal, triscaphe and 1st CMC articulations as well as 1st and 2nd MCP joints and 1st IP joint. Well-corticated subcentimeter ossicle near the neck of the 1st proximal phalanx related to remote trauma noted. Arthritic changes also seen at the 2nd and 5th DIP joints. Remote trauma associated with the 4th and 5th metacarpals suggested. Prominent subchondral cyst at the base of the capitate noted.Right forearm, 2 views: AP and lateral views demonstrate no acute fracture or dislocation. The alignment is satisfactory. There are punctate scattered radiopaque foci within the soft tissues of the mid forearm. Mild osteoarthritic changes about the wrist and elbow noted.IMPRESSION:1. Acute comminuted mildly displaced impacted and slightly overlapping intraarticular fracture associated with the volar lip of the 5th middle phalanx without dislocation.2. 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 This is most apparent at the 1st and 2nd MCP, 1st IP and 2nd and 5th DIP joints.3. Scattered punctate radiopaque foreign bodies within the soft tissues of the mid forearm.4. No acute fracture or dislocation of the right forearm.[employer] ation ID: [id number] by: SHARATH ROGERS on FriJun 05, 2017 4:42:57 PM ESTTranscribed by: LEDY COHEN on FriJun 05, 2017 5:58:21 PM ESTFinalized by: SHARATH ROGERS on FriJun 05, 2017 6:04:21 PM EST [facility] Comment on above: Order Comment: Reason for exam?:rt lower arm and hand abrasions and pain post smash injury today at workInjury/Trauma or Illness?:Injury/TraumaHow long have you had these symptoms (acute/chronic)?:AcuteHistory of cancer?:unkSurgeries, chemotherapy, or radiation?:unkType of Exam?:InitialMechanism of injury?:smash injury XR Forearm Right 2 Viewson 0 06-05-2017 LDL Cholesterol 1. Acute comminuted mildly displaced impacted and slightly overlapping intraarticular fracture associated with the volar lip of the 5th middle phalanx without dislocation. 2. 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 This is most apparent at the 1st and 2nd MCP, 1st IP and 2nd and 5th DIP joints. 3. Scattered punctate radiopaque foreign bodies within the soft tissues of the mid forearm. 4. No acute fracture or dislocation of the right forearm. [employer] Workstation ID: [id number] Invalid Interpretation Code [facility] XR Forearm Right 2 Views EXAMINATION: XR HAND RIGHT 3+ VIEWS (STANDARD); XR FOREARM RIGHT 2 VIEWS 06/05/2017 HISTORY: ORDERING SYSTEM PROVIDED HISTORY: r/o fx, pain in 5th digit, TECHNOLOGIST PROVIDED HISTORY: Reason for exam: rt lower arm abrasions and pain post smash injury today at work Injury/Trauma Cancer History: unk Surgery, RadiationHistory: unk Encounter Type: Initial Mechanism of injury: pain injury ORDERING SYSTEM PROVIDED DIAGNOSIS CODES: S69.91XA Injury of right hand, initial encounter COMPARISON: None. FINDINGS: Right hand, 3 views: Frontal, oblique and lateral views demonstrate an acute comminuted mildly displaced overlapping intraarticular fracture centered at the volar lip of the 5th middle phalanx. Mild associated soft tissue swelling noted. Multifocal osteoarthritic changes with mild joint space narrowing, periarticular sclerosis and osteophytosis involving distal radiocarpal, triscaphe and 1st CMC articulations as well as 1st and 2nd MCP joints and 1st IP joint. Well-corticated subcentimeter ossicle near the neck of the 1st proximal phalanx related to remote trauma noted. Arthritic changes also seen at the 2nd and 5th DIP joints. Remote trauma associated with the 4th and 5th metacarpals suggested. Prominent subchondral cyst at the base of the capitate noted. Right forearm, 2 views: AP and lateral views demonstrate no acute fracture or dislocation. The alignment is satisfactory. There are punctate scattered radiopaque foci within the soft tissues of the mid forearm. Mild osteoarthritic changes about the wrist and elbow noted. Invalid Interpretation Code [employer] [facility] XR Forearm Right 2 Views Interface, Rad In [facility] - 06/05/2017 6:06 PM EST EXAMINATION: XR HAND RIGHT 3+ VIEWS (STANDARD); XR FOREARM RIGHT 2 VIEWS 06/05/2017 HISTORY: ORDERING SYSTEM PROVIDED HISTORY: r/o fx, pain in 5th digit, TECHNOLOGIST PROVIDED HISTORY: Reason for exam: rt lower arm abrasions and pain post smash injury today at work Injury/Trauma Cancer History: unk Surgery, RadiationHistory: unk Encounter Type: Initial Mechanism of injury: pain injury ORDERING SYSTEM PROVIDED DIAGNOSIS CODES: S69.91XA Injury of right hand, initial encounter COMPARISON: None. FINDINGS: Right hand, 3 views: Frontal, oblique and lateral views demonstrate an acute comminuted mildly displaced overlapping intraarticular fracture centered at the volar lip of the 5th middle phalanx. Mild associated soft tissue swelling noted. Multifocal osteoarthritic changes with mild joint space narrowing, periarticular sclerosis and osteophytosis involving distal radiocarpal, triscaphe and 1st CMC articulations as well as 1st and 2nd MCP joints and 1st IP joint. Well-corticated subcentimeter ossicle near the neck of the 1st proximal phalanx related to remote trauma noted. Arthritic changes also seen at the 2nd and 5th DIP joints. Remote trauma associated with the 4th and 5th metacarpals suggested. Prominent subchondral cyst at the base of the capitate noted. Right forearm, 2 views: AP and lateral views demonstrate no acute fracture or dislocation. The alignment is satisfactory. There are punctate scattered radiopaque foci within the soft tissues of the mid forearm. Mild osteoarthritic changes about the wrist and elbow noted. IMPRESSION: 1. Acute comminuted mildly displaced impacted and slightly overlapping intraarticular fracture associated with the volar lip of the 5th middle phalanx without dislocation. 2. 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 This is most apparent at the 1st and 2nd MCP, 1st IP and 2nd and 5th DIP joints. 3. Scattered punctate radiopaque foreign bodies within the soft tissues of the mid forearm. 4. No acute fracture or dislocation of the right forearm. [employer] [employer] Workstation ID: [id number] Invalid Interpretation Code [employer] [facility] XR HAND RIGHT 3+ VIEWS (LUÍS APONTE)on 06-05-2017 XR HAND RIGHT 3+ VIEWS (STANDARD) EXAMINATION:XR HAND RIGHT 3+ VIEWS (STANDARD); XR FOREARM RIGHT 2 VIEWS 06/05/2017HISTORY:ORD ERING SYSTEM PROVIDED HISTORY: r/o fx, pain in 5th digit, TECHNOLOGIST PROVIDED HISTORY: Reason for exam: rt lower arm abrasions and pain post smash injury today at workInjury/TraumaCanc er History: unkSurgery, RadiationHistory: unkEncounter Type: InitialMechanism of injury: pain injuryORDERING SYSTEM PROVIDED DIAGNOSIS CODES:S69.91XA Injury of right hand, initial encounterCOMPARISON:N one.FINDINGS:Right hand, 3 views: Frontal, oblique and lateral views demonstrate an acute comminuted mildly displaced overlapping intraarticular fracture centered at the volar lip of the 5th middle phalanx. Mild associated soft tissue swelling noted. Multifocal osteoarthritic changes with mild joint space narrowing, periarticular sclerosis and osteophytosis involving distal radiocarpal, triscaphe and 1st CMC articulations as well as 1st and 2nd MCP joints and 1st IP joint. Well-corticated subcentimeter ossicle near the neck of the 1st proximal phalanx related to remote trauma noted. Arthritic changes also seen at the 2nd and 5th DIP joints. Remote trauma associated with the 4th and 5th metacarpals suggested. Prominent subchondral cyst at the base of the capitate noted.Right forearm, 2 views: AP and lateral views demonstrate no acute fracture or dislocation. The alignment is satisfactory. There are punctate scattered radiopaque foci within the soft tissues of the mid forearm. Mild osteoarthritic changes about the wrist and elbow noted.IMPRESSION:1. Acute comminuted mildly displaced impacted and slightly overlapping intraarticular fracture associated with the volar lip of the 5th middle phalanx without dislocation.2. 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 This is most apparent at the 1st and 2nd MCP, 1st IP and 2nd and 5th DIP joints.3. Scattered punctate radiopaque foreign bodies within the soft tissues of the mid forearm.4. No acute fracture or dislocation of the right forearm.SKJosh/Bethanie ation ID: [id number] by: SHARATH ROGERS on FriJun 05, 2017 4:42:57 PM ESTTranscribed by: LEDY COHEN on FriJun 05, 2017 5:58:21 PM ESTFinalized by: SHARATH ROGERS on FriJun 05, 2017 6:04:21 PM EST Normal [facility] Comment on above: Order Comment: Reason for exam?:rt lower arm abrasions and pain post smash injury today at workInjury/Trauma or Illness?:Injury/TraumaHow long have you had these symptoms (acute/chronic)?:AcuteHistory of cancer?:unkSurgeries, chemotherapy, or radiation?:unkType of Exam?:InitialMechanism of injury?:pain injury XR Hand Right 3+ Views (Luís aponte)on 06-05-2017 LDL Cholesterol 1. Acute comminuted mildly displaced impacted and slightly overlapping intraarticular fracture associated with the volar lip of the 5th middle phalanx without dislocation. 2. 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 This is most apparent at the 1st and 2nd MCP, 1st IP and 2nd and 5th DIP joints. 3. Scattered punctate radiopaque foreign bodies within the soft tissues of the mid forearm. 4. No acute fracture or dislocation of the right forearm. [employer] [employer] Workstation ID: [id number] Invalid Interpretation Code [employer] [facility] XR Hand Right 3+ Views (Standard) EXAMINATION: XR HAND RIGHT 3+ VIEWS (STANDARD); XR FOREARM RIGHT 2 VIEWS 06/05/2017 HISTORY: ORDERING SYSTEM PROVIDED HISTORY: r/o fx, pain in 5th digit, TECHNOLOGIST PROVIDED HISTORY: Reason for exam: rt lower arm abrasions and pain post smash injury today at work Injury/Trauma Cancer History: unk Surgery, RadiationHistory: unk Encounter Type: Initial Mechanism of injury: pain injury ORDERING SYSTEM PROVIDED DIAGNOSIS CODES: S69.91XA Injury of right hand, initial encounter COMPARISON: None. FINDINGS: Right hand, 3 views: Frontal, oblique and lateral views demonstrate an acute comminuted mildly displaced overlapping intraarticular fracture centered at the volar lip of the 5th middle phalanx. Mild associated soft tissue swelling noted. Multifocal osteoarthritic changes with mild joint space narrowing, periarticular sclerosis and osteophytosis involving distal radiocarpal, triscaphe and 1st CMC articulations as well as 1st and 2nd MCP joints and 1st IP joint. Well-corticated subcentimeter ossicle near the neck of the 1st proximal phalanx related to remote trauma noted. Arthritic changes also seen at the 2nd and 5th DIP joints. Remote trauma associated with the 4th and 5th metacarpals suggested. Prominent subchondral cyst at the base of the capitate noted. Right forearm, 2 views: AP and lateral views demonstrate no acute fracture or dislocation. The alignment is satisfactory. There are punctate scattered radiopaque foci within the soft tissues of the mid forearm. Mild osteoarthritic changes about the wrist and elbow noted. Invalid Interpretation Code [employer] [facility] XR Hand Right 3+ Views (Standard) Interface, Rad In [facility] - 06/05/2017 6:06 PM EST EXAMINATION: XR HAND RIGHT 3+ VIEWS (STANDARD); XR FOREARM RIGHT 2 VIEWS 06/05/2017 HISTORY: ORDERING SYSTEM PROVIDED HISTORY: r/o fx, pain in 5th digit, TECHNOLOGIST PROVIDED HISTORY: Reason for exam: rt lower arm abrasions and pain post smash injury today at work Injury/Trauma Cancer History: unk Surgery, RadiationHistory: unk Encounter Type: Initial Mechanism of injury: pain injury ORDERING SYSTEM PROVIDED DIAGNOSIS CODES: S69.91XA Injury of right hand, initial encounter COMPARISON: None. FINDINGS: Right hand, 3 views: Frontal, oblique and lateral views demonstrate an acute comminuted mildly displaced overlapping intraarticular fracture centered at the volar lip of the 5th middle phalanx. Mild associated soft tissue swelling noted. Multifocal osteoarthritic changes with mild joint space narrowing, periarticular sclerosis and osteophytosis involving distal radiocarpal, triscaphe and 1st CMC articulations as well as 1st and 2nd MCP joints and 1st IP joint. Well-corticated subcentimeter ossicle near the neck of the 1st proximal phalanx related to remote trauma noted. Arthritic changes also seen at the 2nd and 5th DIP joints. Remote trauma associated with the 4th and 5th metacarpals suggested. Prominent subchondral cyst at the base of the capitate noted. Right forearm, 2 views: AP and lateral views demonstrate no acute fracture or dislocation. The alignment is satisfactory. There are punctate scattered radiopaque foci within the soft tissues of the mid forearm. Mild osteoarthritic changes about the wrist and elbow noted. IMPRESSION: 1. Acute comminuted mildly displaced impacted and slightly overlapping intraarticular fracture associated with the volar lip of the 5th middle phalanx without dislocation. 2. 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 This is most apparent at the 1st and 2nd MCP, 1st IP and 2nd and 5th DIP joints. 3. Scattered punctate radiopaque foreign bodies within the soft tissues of the mid forearm. 4. No acute fracture or dislocation of the right forearm. [employer] [employer] Workstation ID: [id number] Invalid Interpretation Code [employer] Vital Signs Date Time Vital Sign Value Performing Clinician Katie ash 06-05-2017 15:52-0500 BMI (Body Mass Index) 25.09 kg/m2 Latasha [facility] Work Phone: 06-05-2017 15:52-0500 Body Temperature 98.49 [degF] Latasha [facility] Work Phone: 06-05-2017 15:52-0500 BP Diastolic 104 mm[Hg] Latasha [facility] Work Phone: 06-05-2017 15:52-0500 BP Systolic 154 mm[Hg] Latasha Hilton [facility] Work Phone: 06-05-2017 15:52-0500 Height 172.7 cm Latasha Hilton [facility] Work Phone: 06-05-2017 15:52-0500 Pulse (Heart Rate) 79 /min Latasha Hilton [facility] Work Phone: 06-05-2017 15:52-0500 Pulse Oximetry 93 % [facility]: 06-05-2017 15:52-0500 Respiratory Rate 16 /min [facility]: 06-05-2017 15:52-0500 [facility] 74.84 [facility] Encounters Encounter Date Encounter Type Care Provider Facility Start: 05-29-2020 End: 05-29-2020 Orders Only Vilma Leonradha Mandujano Work Phone: [facility] Start: 06-06-2017 Ambulatory David Gilmore Facility: [place] Start: 06-06-2017 End: 06-06-2017 Ambulatory David Gilmore Work Phone: [facility] Start: 06-05-2017 End: 06-06-2017 Ambulatory [facility] Start: 06-05-2017 End: 06-05-2017 [facility] Start: 06-05-2017 Office/outpatient visit, new, level 3 Latasha Hilton Work Phone: [facility] Plan of Treatment Date Care Activity Detail Author Start: 06-05-2027 Tetanus vaccination [facility] Work Phone: Start: 12-21-2019 Influenza vaccination given Sequential Influenza Vaccine (#1) [facility] Start: 09-13-2019 Pneumococcal vaccination Pneumococcal Vaccine Age 65+ (1 of 2 - PCV13) [facility] Start: 12-20-2016 Influenza vaccination SEQUENTIAL INFLUENZA VACCINE (#1) [facility] Work Phone: Start: 2014 Zoster vacc, sc ZOSTER VACCINE [facility] Work Phone: Start: 2004 Administration of herpes zoster vaccine Zoster Vaccines (1 of 2) [facility] Start: 2004 Screening for malignant neoplasm of colon [facility] Start: 1972 Hepatitis C antibody, confirmatory test Hepatitis C Screening [facility] Start: 1970 COVID-19 Vaccine (1 of 2) COVID-19 Vaccine (1 of 2) [facility] Start: 1969 HIV screening HIV Screening [facility] Start: 1966 Adolescent depression screening assessment Depression Screening (PHQ9) [facility] Start: 1957 History and physical examination, annual for health maintenance Wellness Visit [facility] Start: 1954 Fall risk assessment Falls Risk Assessment [facility] Start: 1954 Prostate specific antigen measurement PSA Level [facility] Start: 1954 US scan of abdominal aorta Abdominal Aortic Ultrasound [facility] Start: 1954 HEPATITIS C SCREENING HEPATITIS C SCREENING [facility] Work Phone: Start: 1954 Screening colonoscopy COLONOSCOPY [facility] Work Phone: Immunizations Immunization Date Immunization Notes Care Provider Danuta jenkins 06-05-2017 tetanus toxoid, reduced diphtheria toxoid, and acellular pertussis vaccine, adsorbed; Translations: [TDAP] Latasha Hilton [facility] Work Phone: Payers Date Payer Category Payer Worker's Compensation [id number] Worker's Compensation [employer] [id number] 2017-Present [id number] Social History Date Type Detail Facility Start: 06-05-2017 Tobacco smoking stat [facility] Current every day smoker [facility] Work Phone: Sex Assigned At Not on file [facility] Work Phone: Start: 06-05-2017 Tobacco use and exposure Never used [facility] Start: 06-05-2017 Alcohol intake Current non-dr urgent care nurse practitioner of alcohol (finding) [facility] Instructions * Patient Instructions - Latasha Hilton PA-C - 06/05/2017 4:59 PM EST Take prescribed medication(s) as directed. Keep wounds clean and dry Keep splint on until follow up Call employer tomorrow for info regarding follow up with work health locations Use ice for pain/swelling Finger Fracture: Care Instructions Your Care Instructions Breaks in the bones of the finger usually heal well in about 3 to 4 weeks. The pain and swelling from a broken finger can last for weeks. But it should steadily improve, starting a few days after youbreak it. It is very important that you wear and take care of the cast or splint exactly as your doctor tellsyou to so that your finger heals properly and does not end up crooked. Wearing a splint may interfere with your normal activities. Ask for help with daily tasks if you need it. You heal best when you take good care of yourself. Eat a variety of healthy foods, and don't smoke. Follow-up care is a chang part of your treatment and safety. Be sure to make and go to all appointments, and call your doctor if you are having problems. It's also a good idea to know your test resultsand keep a list of the medicines you take. How can you care for yourself at home? If your doctor put a splint on your finger, wear the splint exactly as directed. Do not remove it until your doctor says that you can. Keep your hand raised above the level of your heart as much as you can. This will help reduce swelling. Put ice or a cold pack on your finger for 10 to 20 minutes at a time. Try to do this every 1 to 2 hours for the next 3 days (when you are awake) or until the swelling goes down. Put a thin cloth between the ice and your skin. Keep the splint dry. Be safe with medicines. Take pain medicines exactly as directed. If the doctor gave you a prescription medicine for pain, take it as prescribed. If you are not taking a prescription pain medicine, ask your doctor if you can take an yagz-fjc-coxlsxh medicine. When should you call for help? Call 911 anytime you think you may need emergency care. For example, call if: Your finger is cool or pale or changes color. Call your doctor now or seek immediate medical care if: Your pain gets much worse. You have tingling, weakness, or numbness in your finger. You have signs of infection, such as: Increased pain, swelling, warmth, or redness. Red streaks leading from the area. Pus draining from the area. Swollen lymph nodes in your neck, armpits, or groin. A fever. Watch closely for changes in your health, and be sure to contact your doctor if: Your finger is not steadily improving. Where can you learn more? Log into your personal health record on [email or web address] and enter I742 in the Education box to learn more about Finger Fracture: Care Instructions. Current as of: September 11, 2015 Content Version: 11.2 6191-5571 [employer]. Care instructions adapted under license by your healthcare professional. If you have questions about a medical condition or this instruction, always ask your healthcare professional. [employer] disclaims any warranty or liability for your use of this information. Contusion: Care Instructions Your Care Instructions Contusion is the medical term for a bruise. It is the result of a direct blow or an impact, such asa fall. Contusions are common sports injuries. Most people think of a bruise as a orpnp-elt-gxyd spot. This happens when small blood vessels get torn and leak blood under the skin. But bones, muscles, and organs can also get bruised. This may damage deep tissues but not cause a bruise you can see. The doctor will do a physical exam to find the location of your contusion. You may also have tests to make sure you do not have a more serious injury, such as a broken bone or nerve damage. These mayinclude X-rays or other imaging tests like a CT scan or MRI. Deep-tissue contusions may cause pain and swelling. But if there is no serious damage, they will often get better in a few weeks with home treatment. The doctor has checked you carefully, but problems can develop later. If you notice any problems ornew symptoms, get medical treatment right away. Follow-up care is a chang part of your treatment and safety. Be sure to make and go to all appointments, and call your doctor if you are having problems. It's also a good idea to know your test resultsand keep a list of the medicines you take. How can you care for yourself at home? Put ice or a cold pack on the sore area for 10 to 20 minutes at a time to stop swelling. Put a thincloth between the ice pack and your skin. Be safe with medicines. Read and follow all instructions on the label. If the doctor gave you a prescription medicine for pain, take it as prescribed. If you are not taking a prescription pain medicine, ask your doctor if you can take an sjvh-uhx-lrnkunh medicine. If you can, prop up the sore area on pillows as much as possible for the next few days. Try to keepthe sore area above the level of your heart. When should you call for help? Call your doctor now or seek immediate medical care if: Your pain gets worse. You have new or worse swelling. You have tingling, weakness, or numbness in the area near the contusion. The area near the contusion is cold or pale. Watch closely for changes in your health, and be sure to contact your doctor if: You do not get better as expected. Where can you learn more? Log into your personal health record on [email or web address] and enter H828 in the Education box to learn more about Contusion: Care Instructions. Current as of: September 15, 2015 Content Version: 11.2 2647-5839 [employer]. Care instructions adapted under license by your healthcare professional. If you have questions about a medical condition or this instruction, always ask your healthcare professional. [employer] disclaims any warranty or liability for your use of this information. Scrapes (Abrasions): Care Instructions Your Care Instructions Scrapes (abrasions) are wounds where your skin has been rubbed or torn off. Most scrapes do not go deep into the skin, but some may remove several layers of skin. Scrapes usually don't bleed much, but they may ooze pinkish fluid. Scrapes on the head or face may appear worse than they are. They may bleed a lot because of the good blood supply to this area. Most scrapes heal well and may not need a bandage. They usually heal within 3 to 7 days. A large, deep scrape may take 1 to 2 weeks or longer to heal. A scab may form on some scrapes. Follow-up care is a chang part of your treatment and safety. Be sure to make and go to all appointments, and call your doctor if you are having problems. It's also a good idea to know your test resultsand keep a list of the medicines you take. How can you care for yourself at home? If your doctor told you how to care for your wound, follow your doctor's instructions. If you did not get instructions, follow this general advice: Wash the scrape with clean water 2 times a day. Don't use hydrogen peroxide or alcohol, which can slow healing. You may cover the scrape with a thin layer of petroleum jelly, such as Vaseline, and a nonstick bandage. Apply more petroleum jelly and replace the bandage as needed. Prop up the injured area on a pillow anytime you sit or lie down during the next 3 days. Try to keep it above the level of your heart. This will help reduce swelling. Be safe with medicines. Take pain medicines exactly as directed. If the doctor gave you a prescription medicine for pain, take it as prescribed. If you are not taking a prescription pain medicine, ask your doctor if you can take an jrou-gyj-wmfvkaj medicine. When should you call for help? Call your doctor now or seek immediate medical care if: You have signs of infection, such as: Increased pain, swelling, warmth, or redness around the scrape. Red streaks leading from the scrape. Pus draining from the scrape. A fever. The scrape starts to bleed, and blood soaks through the bandage. Oozing small amounts of blood is normal. Watch closely for changes in your health, and be sure to contact your doctor if the scrape is not getting better each day. Where can you learn more? Log into your personal health record on [email or web address] and enter A374 in the Education box to learn more about Scrapes (Abrasions): Care Instructions. Current as of: September 15, 2015 Content Version: 11.2 6152-3808 [employer]. Care instructions adapted under license by your healthcare professional. If you have questions about a medical condition or this instruction, always ask your healthcare professional. [employer] disclaims any warranty or liability for your use of this information. in this encounter Assessments Diagnosis Closed displaced fracture of phalanx of right little finger, unspecified phalanx, initial encounter - Primary Injury of right upper extrem ity, initial encounter Injury of right hand, initia l encounter Multiple abrasions Examination for medicolegal reason Summary Purpose Family History No Family History Records FoundNo Family History Records Found Advance Directives No Advanced Directives Records FoundNo Advanced Directives Records Found Additional Source Comments (unrecognized sect ion and content) No Status Records FoundNo Status Records Found INFORMATION SOURCE (unrecogn ized section and content) DATE CREATED AUTHOR 10/10/2017 [facility] DATE CREATED AUTHOR AUTHOR'S SUSAN ATDENISA 10/23/2017 [facility] FOR RECORDS PERTAINING TO PATIENTS WHO ARE OR HAVE BEEN ENROLLED IN A CHEMICAL DEPENDENCY/SUBSTANCEABUSE PROGRAM, SOME INFORMATION MAY BE OMITTED. This clinical summary was aggregated from multiple sources. Caution should be exercised in using it in the provision of clinical care. This summary normalizes information from multiple sources, and as a consequence, information in this document may materially change the coding, format and clinical context of patient data. In addition, data may be omitted in some cases. CLINICAL DECISIONS SHOULD BE BASED ON THE PRIMARY CLINICAL RECORDS. [employer] provides no warranty or guarantee of the accuracy or completeness of information in this document.
== END | disposition home or self-care (01) ==
LOC: LABSPEC 15:58
PROVIDERS: PCP Internal Medicine; Referring Provider Urology; Visit Provider Urology
DX: C61 Malignant neoplasm of prostate (principal); R97.20 Elevated prostate specific antigen [PSA]
CPT/HCPCS: 88305; 88341; 88342; G0416

== ENCOUNTER → 2024-06-14 | Outpatient (CLI) | payer MEDICARE, OTHER, SELFPAY ==
[2024-06-14 20:18] LABS: AST(SGOT) 19 U/L (15-37); Alanine Aminotransfer ALT/SGPT 28 U/L (16-61); Albumin, Serum 3.9 g/dL (3.2-5.0); Alkaline Phosphatase 77 U/L (45-117); Anion Gap 3 (5-15); BUN 16 mg/dL (7-18); Chloride 102 mmol/L (98-107); Cholesterol 186 mg/dL (200); EST Glomerular Filtration Rate 79 mL/min (>60); Est Glom Filt Rate - Afr Amer 95 mL/min (>60); Glucose 88 mg/dL (74-106); High Density Lipoprotein 54 mg/dL; Protein, Total 7.9 g/dL (6.4-8.2); Sodium Level 135 mmol/L (136-145); Triglycerides 113 mg/dL; Very Low Density Lipoprotein 23 mg/dL (5-40)
== END | disposition home or self-care (01) ==
LOC: BIMLAB 08:55
PROVIDERS: PCP Internal Medicine; Referring Provider Internal Medicine; Visit Provider Internal Medicine
DX: I10 Essential (primary) hypertension (principal)
CPT/HCPCS: 36415; 80053; 80061

== ENCOUNTER → 2024-08-03 | Outpatient (CLI) | payer MEDICARE, OTHER, SELFPAY ==
--- NOTE | 2024-08-03 13:51 | CT_ITS ---
PROCEDURE: LOW DOSE CT LUNG SCREENING 08/03/2024 REASON FOR EXAM: LUNG CANCER SCREENING Current smoker. TECHNIQUE: Low Dose CT Lung screening without contrast. Coronal and Sagittal reconstruction series were provided. One or more dose reduction techniques were used (e.g., Automated exposure control, adjustment of the mA and/or kV according to patient size, use of iterative reconstruction technique). REFERENCE LINK: [employer] Lung-RADS RADIATION DOSE SUMMARY: CTDlvol: 1.59 mGy DLP: 55.79 mGycm COMPARISON: None. FINDINGS: PULMONARY NODULES: (Only nodules >3mm are reported) Nodules described below are on series 1 unless otherwise specified. Pulmonary Nodules: 7.6 mm noncalcified nodule in the superior segment of the left lower lobe as seen on axial image number 139 and coronal image number 28. Correlation with a PET scan is recommended. Hardware:None Lymph Nodes:No lymph nodes are seen. Heart and Vasculature:Atherosclerotic calcifications of the thoracic aorta. Thoracic aorta and pulmonary arteries have normal contours; noncontrast technique limits evaluation. Coronary Artery Calcifications: Present Lungs and Airways: Mild emphysematous changes are present. Pleura:Unremarkable Upper Abdomen:Unremarkable Bones:Degenerative changes of the thoracic spine. CT/Low Dose CT Lung Screening IMPRESSION: 7.6 mm nodule in the superior segment of the left lower lobe as described. Cor relation with a PET scan is recommended. Coronary artery calcification (CAC) is is present Lung-RADS Category: 4A SUSPICIOUS. RECOMMEND 3 MONTH LDCT; PET/CT MAY BE CONSID ERED IF THERE IS A >=8MM SOLID NODULE OR SOLID COMPONENT. Other Significant Findings: None. Reading Location: [place] [id number]
== END | disposition home or self-care (01) ==
LOC: CT 13:51
PROVIDERS: PCP Internal Medicine; Referring Provider Nurse Practitioner Family; Visit Provider Nurse Practitioner Family
DX: Z12.2 Encounter for screening for malignant neoplasm of respiratory organs (principal); Z87.891 Personal history of nicotine dependence
CPT/HCPCS: 71271

== ENCOUNTER → 2024-08-23 | Outpatient (CLI) | payer MEDICARE, OTHER, SELFPAY | END | disposition home or self-care (01) | LOC: LAB 14:34 | PROVIDERS: PCP Internal Medicine; Referring Provider Urology; Visit Provider Urology | DX: R97.20 Elevated prostate specific antigen [PSA] (principal) | CPT/HCPCS: 36415; 84153; G0103 ==

== ENCOUNTER → 2024-08-26 | Outpatient (CLI) | payer MEDICARE, OTHER, SELFPAY ==
--- NOTE | 2024-08-26 09:42 | STRESSREP_ITS ---
Stress Test Report Date: 08/26/2024 Procedure: Exercise tolerance test/imaging study Indications: Coronary artery disease Consent: Per the patient Procedure: The patient exercised on a Jabari protocol for 9 minutes achieving a peak heart rate of 116 bpm (76% predicted maximal heart rate) with a peak blood pressure 154/70 mmHg and a peak MET capacity of 10.1 METs. The baseline ECG demonstrated sinus rhythm with inferior and lateral ST depressions. The peak exercise ECG was nondiagnostic secondary to baseline abnormality. There were no cardiac dysrhythmias pretest, during exercise, or recovery. The functional capacity was considered very good for age. There was no complaint of chest discomfort during exercise or recovery. The examination was discontinued secondary to fatigue and dyspnea. The patient was injected with 11.8 mCi of technetium 99m Cardiolite and subsequently rest SPECT Cardiolite nuclear imaging was obtained in the h orizontal long, vertical long, and short axis views. Post-exercise, the patient was injected with 34.1 mCi of technetium 99m Cardiolite and subsequently stress SPECT Cardiolite nuclear imaging was obtained in the horizontal long, vertical long, and short axis views. A gated Cardiolite study at peak stress was obtained. Rest and stress SPECT Cardiolite nuclear imaging status post realignment, no rmalization, and attenuation correction, demonstrates a very mild reversible perfusion defect of the inferior wall and septum suggestive of mild ischemia. There is end systolic thickening and brightening. The gated Cardiolite study demonstrates myocardial thickening and inward wall motion. The reported LVEF is 60%. Impression: 1. Technically adequate exercise tolerance test 2. Peak exercise ECG was nondiagnostic 3. There were no cardiac dysrhythmias pretest, during exercise, or recovery 4. Rest and stress SPECT Cardiolite nuclear imaging demonstrate a very mild reversible perfusion defect of the inferior wall and apex suggestive of mild ischemia. 5. The gated Cardiolite study reports an LVEF of 60%. This note was generated with [employer] software. It may contain incorrect words, spelling, and punctuation that were not noted in checking the note before signing.
== END | disposition home or self-care (01) ==
LOC: CVS 06:18
PROVIDERS: PCP Internal Medicine; Referring Provider Internal Medicine; Visit Provider Internal Medicine
DX: R94.31 Abnormal electrocardiogram [ECG] [EKG] (principal); I10 Essential (primary) hypertension; E78.5 Hyperlipidemia, unspecified; Z82.49 Family history of ischemic heart disease and other diseases of the circulatory system; R93.1 Abnormal findings on diagnostic imaging of heart and coronary circulation
CPT/HCPCS: 78452; 93017; A9500; A4216

== ENCOUNTER 2024-11-03 08:23 | Day surgery (SDC) | payer MEDICARE, OTHER, SELFPAY ==
[2024-10-28 16:31] LABS: Hematocrit 39.1 % (40-54); Hemoglobin 12.6 g/dL (13.0-16.5); Immature Granulocytes Count 0.030 X10^3/uL (0.0-0.0); Mean Corp Hgb Conc 32.2 g/dL (32-36); Mean Corpuscular Volume 94.9 fL (80-94); Mean Platelet Vol. 8.7 fl (6.2-12.0); NRBC Flagged by Analyzer 0 % (0-5); Platelet Count 269 K/mm3 (150-450); RBC Distribution Width CV 12.8 % (11.6-14.6); RBC Distribution Width SD 44.4 fl (35.1-43.9); Red Blood Count 4.12 M/mm3 (4.6-6.2); White Blood Count 7.7 K/mm3 (4.4-11.0)
[2024-10-28 17:29] LABS: Anion Gap 11 (5-15); BUN 17 mg/dL (4-19); BUN/Creat Ratio 12.8 RATIO (10-20); Calcium,Total 9.4 mg/dL (7.6-11.0); Carbon Dioxide 24.6 mmol/L (21.0-32.0); Chloride 102 mmol/L (98-108); Glucose 89 mg/dL (70-99); Potassium 4.4 mmol/L (3.3-5.1)
--- NOTE | 2024-11-02 07:33 | RAD_ITS ---
EXAM: XR Chest, 2 Views CLINICAL INDICATION: PRE-OPERATIVE- [facility] TECHNIQUE: Frontal and lateral views of the chest. COMPARISON: No relevant prior studies available. FINDINGS: LUNGS AND PLEURAL SPACES: Bibasilar atelectasis or pneumonia. Hyperlucent lungs. Flattening of the diaphragm. No pneumothorax. HEART: Unremarkable. No cardiomegaly. MEDIASTINUM: Unremarkable. Normal mediastinal contour. BONES/JOINTS: Unremarkable. No acute fracture. RAD/Chest PA and Lateral IMPRESSION: 1. Bibasilar atelectasis or pneumonia. 2. Suggestion of COPD. Reading [facility]
--- NOTE | 2024-11-02 07:33 | RAD_ITS ---
EXAM: XR Chest, 2 Views CLINICAL INDICATION: PRE-OPERATIVE- [facility] TECHNIQUE: Frontal and lateral views of the chest. COMPARISON: No relevant prior studies available. FINDINGS: LUNGS AND PLEURAL SPACES: Bibasilar atelectasis or pneumonia. Hyperlucent lungs. Flattening of the diaphragm. No pneumothorax. HEART: Unremarkable. No cardiomegaly. MEDIASTINUM: Unremarkable. Normal mediastinal contour. BONES/JOINTS: Unremarkable. No acute fracture. RAD/Chest PA and Lateral IMPRESSION: 1. Bibasilar atelectasis or pneumonia. 2. Suggestion of COPD. Reading Location[facility]
[2024-11-02 08:15] VITALS: BMI 23.6
--- NOTE | 2024-11-29 09:46 | CL.D_ITS ---
Patient Name: DANNY PEREA Study Date: 11/03/2024 Performing: Aflonso Roberts MD Ht: 69 inches 175.26 cm : 1955 Wt: 159.99 lbs 72.57 kg Age: 69 Gender: male BSA: 1.88 PROCEDURE(S) PERFORMED [id number]-([id number])[facility] CLINICAL PROFILE AND INDICATIONS Indications: Suspected CAD Heart Failure: None Stress/Imaging Stress Test w/SPECT MPI: Yes Result: Positive Intermediate RiskStress Test with SPECT MPI: Positive Intermediate Risk Angina Classification Anginal Classification w/in 2 Weeks: No symptoms CAD Presentations: No Sxs, no angina. CONCLUSIONS 50% Mid, 60% distal LAD 50% Prox OM1 60% distal RCA RECOMMENDATIONS Medical therapy Risk factor modification DESCRIPTION OF PROCEDURE The patient arrived to the procedure lab. The risks and benefits of the procedure as well as a full description of our services here and current unavailability of surgical backup were fully explained to the patient and/or their significant other prior to the catheterization. The Timeout was completed, verifying the correct patient and procedure. The patient's procedural site was prepped and draped in the usual fashion. Local anesthetic was given subcutaneously to right radial region with Lidocaine 2%. Using a modified Seldinger technique, arterial access was obtained via the right radial artery, a 6Fr sheath was inserted. Left Coronary Artery selective angiography was performed in multiple views using a 5 Fr. 4.0 Merriman catheter. Right Coronary Artery selective angiography was then performed in multiple views using a 5 Fr. 3DRC (Juan) catheter.The arterial sheath was pulled and a TR Band was applied for hemostasis CORONARY ANGIOGRAPHY DOMINANCE: Right Dominant LEFT MAIN: Angiographically normal LEFT ANTERIOR DESCENDING ARTERY: LAD: Tubular 30% Proximal lesion in LAD Tubular 50% Mid lesion in LAD Tubular 60% Distal lesion in LAD OM 1: Calcified 50% Proximal lesion in MARG1 OM 2: Calcified 50% Proximal lesion in MARG1 RIGHT CORONARY ARTERY: RCA: Tubular Calcified 60% Distal lesion in RCA Tubular 40% Proximal lesion in RCA COMPLICATIONS No Complications PROCEDURE MEDICATIONS Fentanyl 50 mcg IV Versed 1 mg IV Oxygen: 2 L/min via nasal cannula Heparin given IA 11/03/2024 10:49:18 Verapamil 2.5mg, Ntg 200mcgs, 2000 units of Heparin given IA 11/03/2024 10:49:18 SUMMARY OF HEMODYNAMIC DATA Time AIR REST ECG 08:42:46 AO 107/73 (88) SA 10:50:35 Signed By Alfonso Roberts MD On 11/03/2024 11:17:21 Alfonso Roberts MD
--- NOTE | 2024-11-29 09:46 | CL.D_ITS ---
Patient Name: DANNY PEREA Study Date: 11/03/2024 Performing: Alfonso Roberts MD Ht: 69 inches 175.26 cm : 1955 Wt: 159.99 lbs 72.57 kg Age: 69 Gender: male BSA: 1.88 PROCEDURE(S) PERFORMED DC02-([id number])[facility] CLINICAL PROFILE AND INDICATIONS Indications: Suspected CAD Heart Failure: None Stress/Imaging Stress Test w/SPECT MPI: Yes Result: Positive Intermediate RiskStress Test with SPECT MPI: Positive Intermediate Risk Angina Classification Anginal Classification w/in 2 Weeks: No symptoms CAD Presentations: No Sxs, no angina. CONCLUSIONS 50% Mid, 60% distal LAD 50% Prox OM1 60% distal RCA RECOMMENDATIONS Medical therapy Risk factor modification DESCRIPTION OF PROCEDURE The patient arrived to the procedure lab. The risks and benefits of the procedure as well as a full description of our services here and current unavailability of surgical backup were fully explained to the patient and/or their significant other prior to the catheterization. The Timeout was completed, verifying the correct patient and procedure. The patient's procedural site was prepped and draped in the usual fashion. Local anesthetic was given subcutaneously to right radial region with Lidocaine 2%. Using a modified Seldinger technique, arterial access was obtained via the right radial artery, a 6Fr sheath was inserted. Left Coronary Artery selective angiography was performed in multiple views using a 5 Fr. 4.0 Lula catheter. Right Coronary Artery selective angiography was then performed in multiple views using a 5 Fr. 3DRC (Juan) catheter.The arterial sheath was pulled and a TR Band was applied for hemostasis CORONARY ANGIOGRAPHY DOMINANCE: Right Dominant LEFT MAIN: Angiographically normal LEFT ANTERIOR DESCENDING ARTERY: LAD: Tubular 30% Proximal lesion in LAD Tubular 50% Mid lesion in LAD Tubular 60% Distal lesion in LAD OM 1: Calcified 50% Proximal lesion in MARG1 OM 2: Calcified 50% Proximal lesion in MARG1 RIGHT CORONARY ARTERY: RCA: Tubular Calcified 60% Distal lesion in RCA Tubular 40% Proximal lesion in RCA COMPLICATIONS No Complications PROCEDURE MEDICATIONS Fentanyl 50 mcg IV Versed 1 mg IV Oxygen: 2 L/min via nasal cannula Heparin given IA 11/03/2024 10:49:18 Verapamil 2.5mg, Ntg 200mcgs, 2000 units of Heparin given IA 11/03/2024 10:49:18 SUMMARY OF HEMODYNAMIC DATA Time AIR REST ECG 08:42:46 AO 107/73 (88) SA 10:50:35 Signed By Alfonso Roberts MD On 11/03/2024 11:17:21 Alfonso Roberts MD
== END 2024-11-03 12:45 | disposition home or self-care (01) ==
PROVIDERS: Nurse Practitioner Family; PCP Internal Medicine; Referring Provider Internal Medicine Cardiovascular Disease; Visit Provider Internal Medicine Cardiovascular Disease
DX: I25.10 Atherosclerotic heart disease of native coronary artery without angina pectoris (principal); I10 Essential (primary) hypertension; E78.00 Pure hypercholesterolemia, unspecified; R91.1 Solitary pulmonary nodule; N40.0 Benign prostatic hyperplasia without lower urinary tract symptoms; Z87.891 Personal history of nicotine dependence; Z79.82 Long term (current) use of aspirin; Z79.899 Other long term (current) drug therapy
CPT/HCPCS: 36415; 71046; 80048; 85025; 93454; 99152; 99153; J0153; Q9967; C1769; C1894

== ENCOUNTER → 2024-11-08 | Outpatient (CLI) | payer MEDICARE, OTHER, SELFPAY ==
--- NOTE | 2024-11-08 07:42 | CT_ITS ---
EXAM: CT Chest With Intravenous Contrast CLINICAL INDICATION: F/U LLL NODULE, SMOKER TECHNIQUE: Axial computed tomography images of the chest with intravenous contrast. This CT exam was performed using one or more of the following dose reduction techniques: automated exposure control, adjustment of the mA and/or kV according to patient size, and/or use of iterative reconstruction technique. COMPARISON: No relevant prior studies available. FINDINGS: LUNGS AND PLEURAL SPACES: Lung emphysema. Stable 8 mm nodule of the left lower lobe. No consolidation. No significant effusion. No pneumothorax. HEART: Unremarkable. No cardiomegaly. No significant pericardial effusion. No significant coronary artery calcifications. MEDIASTINUM: A few prominent mediastinal lymph nodes measuring up to 6 mm. BONES/JOINTS: Unremarkable. No acute fracture. SOFT TISSUES: Unremarkable. VASCULATURE: Unremarkable. No thoracic aortic aneurysm. LYMPH NODES: See above. CT/Chest WITH Contrast IMPRESSION: Stable 8 mm nodule of the left lower lobe. Reading Location[facility]
== END | disposition home or self-care (01) ==
LOC: CT 07:42
PROVIDERS: PCP Internal Medicine; Referring Provider Internal Medicine Hematology & Oncology; Visit Provider Internal Medicine Hematology & Oncology
DX: R91.1 Solitary pulmonary nodule (principal); F17.200 Nicotine dependence, unspecified, uncomplicated
CPT/HCPCS: 71260; Q9967

== ENCOUNTER → 2025-02-14 | Outpatient (CLI) | payer MEDICARE, OTHER, SELFPAY ==
[2025-02-14 11:27] LABS: PSA,Total- Diagnostic 4.48 ng/mL (0.00-4.00)
== END | disposition home or self-care (01) ==
LOC: LAB 10:24
PROVIDERS: PCP Internal Medicine; Referring Provider Internal Medicine; Visit Provider Nurse Practitioner
DX: C61 Malignant neoplasm of prostate (principal)
CPT/HCPCS: 36415; 84153